=== PATIENT | male | born 1930 | race Caucasian/White ===

== ENCOUNTER 2017-11-07 09:01 | Emergency (ER) | payer OTHER ==
[~2017-11-07] VITALS: Wt 77.1 kg
[~2017-11-07 09:01] MED LIST: BIMATOPROST2.5 ML OU; COUMADIN3 MG PO; DEMEROL; FLOMAX0.4 MG PO; HCTZ PO; HUMALOG100 U/ML SC; INSULIN-HUMA100 U/ML; INSULIN-HUMA100 U/ML SC; LANTUS100 U/ML SC; LUMIGAN 2.5 ML2.5 ML OPH; METFORMIN500 MG PO; NEURONTIN300 MG PO; PRAVASTATIN SOD40 MG PO; PRESERVISION A1 EACH PO; PRILOSEC20 M1 PO; PRINIVIL5 M1 PO; ULTRAM50 MG PO; XARELTO20 M1 PO
[2017-11-07 11:54] LABS: BASO % 0.4 % (0.0-1.0); EOS # 0.3 10*3/uL (0.0-0.4); EOS % 3.6 % (1.0-4.0); LYMPH # 1.8 10*3/uL (1.3-4.4); LYMPH % 24.4 % (27.0-41.0); MEAN CELL VOLUME 90.9 fl (80.0-94.0); MEAN CORPUSCULAR HGB CONC 34.1 g/dl (33.0-37.0); MEAN PLATELET VOLUME 9.8 fl (9.6-12.3); MONO # 0.9 10*3/uL (0.1-1.0); MONO % 12.6 % (3.0-9.0); NEUT # 4.2 10*3/uL (2.3-7.9); NEUT % 58.3 % (47.0-73.0); PLATELET COUNT AUTOMATED 184 10*3/uL (130-400); RED BLOOD COUNT 4.51 10*6/uL (4.50-5.90); RED CELL DISTRI WIDTH 13.3 % (0-14.5); WHITE BLOOD COUNT 7.2 10*3/uL (4.8-10.8)
[2017-11-07 12:03] LABS: ACT PARTIAL THROMBO TIME 27.4 SECONDS (20.8-31.5); INTERNATIONAL NORM RATIO 1.1 (2.0-3.5)
[2017-11-07 12:07] LABS: CREATININE 1.49 mg/dL (0.70-1.30); POTASSIUM 4.6 mmol/L (3.5-5.1)
== END 2017-11-07 12:43 | disposition home or self-care (01) ==
LOC: ED 09:01
PROVIDERS: Emergency Medicine
DX: S72.091A Other fracture of head and neck of right femur, initial encounter for closed fracture (principal); S79.911A Unspecified injury of right hip, initial encounter; I10 Essential (primary) hypertension; Z88.8 Allergy status to other drugs, medicaments and biological substances; Z79.4 Long term (current) use of insulin; Z79.84 Long term (current) use of oral hypoglycemic drugs; Z79.899 Other long term (current) drug therapy; E11.40 Type 2 diabetes mellitus with diabetic neuropathy, unspecified; Z86.718 Personal history of other venous thrombosis and embolism; Z85.46 Personal history of malignant neoplasm of prostate; Z90.49 Acquired absence of other specified parts of digestive tract; W18.39XA Other fall on same level, initial encounter; Y93.89 Activity, other specified; Y92.090 Kitchen in other non-institutional residence as the place of occurrence of the external cause; Y99.8 Other external cause status

== ENCOUNTER 2018-12-17 14:37 | Inpatient (IN) | payer OTHER ==
[~2018-12-17] VITALS: Ht 177.8 cm; Wt 75.8 kg
--- NOTE | ~2018-12-17 | EKG ---
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
[2018-12-17 14:37] VITALS: BP 100/60
[~2018-12-17 14:37] MED LIST changes: +LANTUS SOL100 UNIT/1 SQ; -LANTUS100 U/ML SC; +METFORMIN XR500 MG PO
[2018-12-17 15:18] LABS: BASO % 0.3 % (0.0-1.0); EOS # 0.2 10*3/uL (0.0-0.4); EOS % 2.4 % (1.0-4.0); HEMATOCRIT 44.9 % (42.0-52.0); HEMOGLOBIN 15.2 g/dl (14.0-18.0); LYMPH # 1.7 10*3/uL (1.3-4.4); LYMPH % 26.9 % (27.0-41.0); MEAN CELL VOLUME 91.8 fl (80.0-94.0); MEAN CORPUSCULAR HGB 31.1 pg (27.0-31.0); MEAN CORPUSCULAR HGB CONC 33.9 g/dl (33.0-37.0); MEAN PLATELET VOLUME 9.3 fl (9.6-12.3); MONO # 0.6 10*3/uL (0.1-1.0); MONO % 10.4 % (3.0-9.0); NEUT # 3.7 10*3/uL (2.3-7.9); NEUT % 59.4 % (47.0-73.0); PLATELET COUNT AUTOMATED 194 10*3/uL (130-400); RED BLOOD COUNT 4.89 10*6/uL (4.50-5.90); RED CELL DISTRI WIDTH 13.2 % (0-14.5); WHITE BLOOD COUNT 6.2 10*3/uL (4.8-10.8)
[2018-12-17 15:30] VITALS: BP 106/70
[2018-12-17 15:35] LABS: ACT PARTIAL THROMBO TIME 28.3 SECONDS (20.8-31.5); INTERNATIONAL NORM RATIO 1.1 (2.0-3.5)
[2018-12-17 15:37] LABS: ALBUMIN 3.3 gm/dl (3.1-4.5); ALKALINE PHOSPHATASE 56 U/L (45-117); BUN 20 mg/dl (7-24); CHLORIDE 108 mmol/L (98-107); LIPASE 243 U/L (73-393); SGOT/AST 13 IU/L (3-35); SGPT/ALT 18 U/L (12-78); SODIUM 141 mmol/L (136-145); TOTAL PROTEIN 7.5 gm/dL (6.4-8.2); TROPONIN I < 0.015 ng/ml (<0.045)
[2018-12-17 17:12] VITALS: BP 104/72
--- NOTE | 2018-12-17 17:45 | NUR ---
A 88, admitted to , under the services of IVETH Castro DO with a diagnosis of HYPOTENSION, DIZZINESS. Chief complaint is DIZZINESS. Patient arrived via ambulatory from ER. Monitor applied. Initial assessment completed. Vital signs taken and recorded. IVETH CASTRO DO notified of admission to the unit. Orders received. See assessment for past medical history, medications and allergies. Patient and/or family oriented to unit. [facility] visitation policy reviewed. Clothing/patient valuable form completed. BRENDA VERDUZCO
[2018-12-17] MEDS ORDERED: ALLERGY10 M1 PO (18:28)
[2018-12-17] MEDS ORDERED: ASCORBIC ACID500 M2 PO (18:28)
--- NOTE | 2018-12-17 18:31 | NUR ---
DR DELA CRUZ MADE AWARE THAT MED REC HAD BEEN CHANGED DUE TO VERIFYING WITH PT. ALSO PT WISHES TO BE DNR-CC, IS CURRENTLY ON MONITOR AND ORDERED FULL CODE, AND NOTIFIED OF ORTHO BP RESULTS.
[2018-12-17 20:00] VITALS: BP 103/55
--- NOTE | 2018-12-17 21:37 | NUR ---
PT REFUSES HUMALOG COVERAGE AT THIS TIME. BLOOD SUGAR 165. PT STATES THAT HE WOULD NOT COVER WITH INSULIN AT HOME WITH BLOOD SUGAR OF 165, LANTUS GIVEN PER ORDER. WILL CONTINUE TO MONITOR. CALL LIGHT IN REACH.
[2018-12-18] VITALS: BP 120/47
[2018-12-18 06:24] LABS: BASO % 0.5 % (0.0-1.0); EOS # 0.2 10*3/uL (0.0-0.4); EOS % 2.8 % (1.0-4.0); HEMOGLOBIN 14.5 g/dl (14.0-18.0); LYMPH # 2.2 10*3/uL (1.3-4.4); LYMPH % 34.1 % (27.0-41.0); MEAN CELL VOLUME 91.9 fl (80.0-94.0); MEAN CORPUSCULAR HGB 31.7 pg (27.0-31.0); MEAN CORPUSCULAR HGB CONC 34.5 g/dl (33.0-37.0); MEAN PLATELET VOLUME 9.9 fl (9.6-12.3); MONO # 0.7 10*3/uL (0.1-1.0); MONO % 10.7 % (3.0-9.0); NEUT # 3.4 10*3/uL (2.3-7.9); NEUT % 51.4 % (47.0-73.0); PLATELET COUNT AUTOMATED 185 10*3/uL (130-400); RED BLOOD COUNT 4.57 10*6/uL (4.50-5.90); RED CELL DISTRI WIDTH 13.2 % (0-14.5); WHITE BLOOD COUNT 6.5 10*3/uL (4.8-10.8)
[2018-12-18 06:36] LABS: BUN 17 mg/dl (7-24); CHLORIDE 111 mmol/L (98-107); CHOLESTEROL 119 mg/dL (<200); CREATININE 1.21 mg/dL (0.70-1.30); PHOSPHOROUS 3.3 mg/dL (2.5-4.9); POTASSIUM 4.1 mmol/L (3.5-5.1); SODIUM 144 mmol/L (136-145); TRIGLYCERIDES 55 mg/dl (<150); VLDL CHOLESTEROL 11 mg/dL (6-40)
[2018-12-18 06:47] LABS: FREE T4 1.01 ng/dl (0.76-1.46); HDL CHOLESTEROL 51 mg/dl (40-60); LDL CHOLESTEROL 57 mg/dL (9-159)
--- NOTE | 2018-12-18 07:00 | NUR ---
PT AWAKE. BEDSIDE REPORT RECEIVED FROM ANTONETTE PEDRO. NO PT QUESTIONS CONCERNS AT THIS TIME. CALL MA IN REACH
[2018-12-18 07:09] LABS: ACT PARTIAL THROMBO TIME 24.7 SECONDS (20.8-31.5)
[2018-12-18 07:56] LABS: VITAMIN D, 25-HYDROXY 43.9 ng/mL (30-100)
[2018-12-18 08:00] VITALS: BP 140/60
[2018-12-18 12:00] VITALS: BP 168/88
[2018-12-18 16:00] VITALS: BP 153/73
[2018-12-18 20:00] VITALS: BP 131/71
[2018-12-19] VITALS: BP 147/76
--- NOTE | 2018-12-19 05:48 | NUR ---
PT UP TO BATHROOM, GAIT STEADY. IV FLUIDS INFUSING. NO S/S OF DISTRESS. RESPIRATIONS EASY ON ROOM AIR. AM MEDS GIVEN WITH EASE. CALL LIGHT IN REACH.
[2018-12-19 06:20] LABS: BASO % 0.2 % (0.0-1.0); EOS # 0.2 10*3/uL (0.0-0.4); EOS % 3.4 % (1.0-4.0); HEMATOCRIT 38.7 % (42.0-52.0); HEMOGLOBIN 13.1 g/dl (14.0-18.0); LYMPH # 1.8 10*3/uL (1.3-4.4); LYMPH % 35.1 % (27.0-41.0); MEAN CELL VOLUME 93.5 fl (80.0-94.0); MEAN CORPUSCULAR HGB 31.6 pg (27.0-31.0); MEAN CORPUSCULAR HGB CONC 33.9 g/dl (33.0-37.0); MEAN PLATELET VOLUME 9.7 fl (9.6-12.3); MONO # 0.7 10*3/uL (0.1-1.0); MONO % 14.1 % (3.0-9.0); NEUT # 2.3 10*3/uL (2.3-7.9); NEUT % 46.4 % (47.0-73.0); PLATELET COUNT AUTOMATED 158 10*3/uL (130-400); RED BLOOD COUNT 4.14 10*6/uL (4.50-5.90); RED CELL DISTRI WIDTH 13.2 % (0-14.5)
[2018-12-19 06:46] LABS: ALBUMIN 2.5 gm/dl (3.1-4.5); ALKALINE PHOSPHATASE 44 U/L (45-117); BUN 17 mg/dl (7-24); CHLORIDE 111 mmol/L (98-107); CREATININE 1.07 mg/dL (0.70-1.30); PHOSPHOROUS 3.1 mg/dL (2.5-4.9); POTASSIUM 4.6 mmol/L (3.5-5.1); SGOT/AST 12 IU/L (3-35); SGPT/ALT 16 U/L (12-78); SODIUM 145 mmol/L (136-145)
[2018-12-19 08:00] VITALS: BP 165/79
--- NOTE | 2018-12-19 09:28 | NUR ---
ORTHOS COMPLETE. PT DENIES DIZZINESS DURING. CALL LIGHT IN REACH. WILL MONITOR
[2018-12-19 12:00] VITALS: BP 154/83
--- NOTE | 2018-12-19 14:00 | NUR ---
PHYSICAL THERAPY PT EVAL COMPLETED TODAY ON LEVEL 4: FULL EVALUATION TO FOLLOW. RECOMMEND PT WHILE HERE TO ADDRESS DECREASED STRENGTH AND FUNCTIONAL MOBILITY. PT EVAL IS MODERATE COMPLEXITY BASED ON CHART REVIEW, TEST RESULTS AND EVALUATION: 40393 D.C RECOMMENDATIONS ARE FOR HOME PT HOWEVER DURING EVALUATION PATIENT STATES HE DOES NOT FEEL HE WILL NEED THIS. THANK YOU FOR REFERRAL RICARDA MORALES PT
[2018-12-19 16:00] VITALS: BP 144/75
--- NOTE | 2018-12-19 16:00 | NUR ---
Patient resting quietly with no c/o discomfort. Respirations easy and regular. Vital signs stable. No overt distress. BRENDA GAN R
[2018-12-19 20:00] VITALS: BP 133/67
[2018-12-20] VITALS: BP 140/58
[2018-12-20 06:37] LABS: BUN 16 mg/dl (7-24); CHLORIDE 112 mmol/L (98-107); CREATININE 1.25 mg/dL (0.70-1.30); POTASSIUM 4.4 mmol/L (3.5-5.1); SODIUM 145 mmol/L (136-145)
[2018-12-20 06:40] LABS: BASO % 0.5 % (0.0-1.0); EOS # 0.2 10*3/uL (0.0-0.4); EOS % 2.9 % (1.0-4.0); HEMATOCRIT 38.9 % (42.0-52.0); HEMOGLOBIN 12.9 g/dl (14.0-18.0); LYMPH # 1.6 10*3/uL (1.3-4.4); LYMPH % 29.9 % (27.0-41.0); MEAN CELL VOLUME 92.8 fl (80.0-94.0); MEAN CORPUSCULAR HGB 30.8 pg (27.0-31.0); MEAN CORPUSCULAR HGB CONC 33.2 g/dl (33.0-37.0); MEAN PLATELET VOLUME 9.7 fl (9.6-12.3); MONO # 0.7 10*3/uL (0.1-1.0); MONO % 13.1 % (3.0-9.0); NEUT # 2.9 10*3/uL (2.3-7.9); NEUT % 53.1 % (47.0-73.0); PLATELET COUNT AUTOMATED 158 10*3/uL (130-400); RED BLOOD COUNT 4.19 10*6/uL (4.50-5.90); RED CELL DISTRI WIDTH 13.4 % (0-14.5); WHITE BLOOD COUNT 5.5 10*3/uL (4.8-10.8)
--- NOTE | 2018-12-20 07:30 | NUR ---
ASSESSMENT COMPLETED. PT DENIES DIZZINESS, SOB, CHEST PAIN AT THIS TIME. IS PLEASANT AND COOPERATIVE, WAITING FOR BREAKFAST TRAY TO ARRIVE. NO COMPLAINTS AT THIS TIME. ANTONETTE GRIFFIN
[2018-12-20 08:03] VITALS: BP 130/68
--- NOTE | 2018-12-20 09:00 | NUR ---
case management attempted to visit with patient, patient was with nursing staff at this time, will see at a later time today
--- NOTE | 2018-12-20 09:10 | NUR ---
Occupational Therapy referral received and screen completed. Patient admits to independence in mobility and self care. He will use a straight cane or in the am at home a quad cane and admits it is because he lacks sensation in BLEs d/t diabetic neuropathy. Patient reports mild edema right elb and OTR recommended elevation and pumping of UE above the heart. Patient expresses good understanding. OTR also recommends silver sneaks maintanence program at the [facility] upon d/c. Patient reports that his brother participates in this program and that he will consider it as well upon d/c. No further OT indicated at this time. D/C referral d/t patinets independence. Cindy Garcia OTR/L
--- NOTE | 2018-12-20 11:24 | NUR ---
Seed Trucker in to talk to patient. Patient states lives at home with alone. There are few steps in the home. Physician: nawaf ferris Pharmacy: [facility] services: none Patient's level of ADLs: INDEPENDENT Patient has working utilities: all working DME: cane Follow-up physician's appointment after d/c: will be made by hospitalist nurse director upon discharge Does patient want to access PORTAL?: no Discharge plan discussed with patient, patient lives at home alone, he states he is independent in adls and ambulation, drives, he uses a cane when he goes outside of his home. also stated that his daughter lives next door and would help him with anything he needed. patient states he hopes to be going home today. DENITA SANCHEZ
[2018-12-20 11:31] VITALS: BP 154/72
--- NOTE | 2018-12-20 11:37 | NUR ---
PT RESTING COMFORTABLY AT THIS TIME WAITING FOR LUNCH TRAY. NO COMPLAINTS OF SOB, DIZZINESS AT THIS TIME. REPORT GIVEN TO FILIBERTO PEDRO. ANTONETTE GRIFFIN
--- NOTE | 2018-12-20 13:31 | NUR ---
PHYSICAL THERAPY TIME OF TREATMENT: 8:48 AM Patient presented to therapy in supine with head elevated and report of not having any dizziness or other complaints. Patient agrees to therapy session. Patient was identified by name and . Patient transfers supine to sitting at EOB WITH SBA. Patient STS transfer with SBA. Patient ambulated with W/W and CLose Supervision for 416' x 1 and no LOB using the W/W. Patient then sat on EOB and performed bilateral LE ther ex 2 x 10 reps in all planes of movement for strengthening in order to improve patient's functional mobility. Patient transferred back to supine in bed with SBA. Patient was left in supine in bed with head of bed elevated, call light within reach, and bed alarm activated. Patient was 1:1 with this PUMPER HELPER for 23 minutes total. MIO BELTRAN PUMPER HELPER
[2018-12-20 16:00] VITALS: BP 148/81
--- NOTE | 2018-12-20 16:00 | NUR ---
PHYSICAL THERAPY Patient is to be discharged this afternoon. EAR TIFFANI BELTRAN PTA
--- NOTE | 2018-12-20 16:52 | NUR ---
Discharge instructions reviewed with patient/family. Patient receptive and verbalizes understanding. Follow-up care arranged. Written instructions given to patient/family. BRENDA GAN
--- NOTE | 2018-12-21 07:43 | NUR ---
PHYSICAL THERAPY CO-SIGN I approve of the Phyical Therapy notes written above. ASHWIN JAIN PT
== END 2018-12-20 16:52 | disposition home or self-care (01) | DRG 683 ==
LOC: ED 14:37 → EDHOLD 15:59 → 4E 15:59 → EDHOLD 16:32 → 4E 17:08
PROVIDERS: Internal Medicine; Nurse Practitioner Family; Student in an Organized Health Care Education/Training Program; ADMIT Emergency Medicine
DX: N17.0 Acute kidney failure with tubular necrosis (principal); E44.1 Mild protein-calorie malnutrition; D68.9 Coagulation defect, unspecified; E86.0 Dehydration; I95.1 Orthostatic hypotension; E11.42 Type 2 diabetes mellitus with diabetic polyneuropathy; E87.8 Other disorders of electrolyte and fluid balance, not elsewhere classified; E11.65 Type 2 diabetes mellitus with hyperglycemia; R35.0 Frequency of micturition; R29.6 Repeated falls; E11.39 Type 2 diabetes mellitus with other diabetic ophthalmic complication; H40.9 Unspecified glaucoma; N40.1 Benign prostatic hyperplasia with lower urinary tract symptoms; I67.9 Cerebrovascular disease, unspecified; I12.9 Hypertensive chronic kidney disease with stage 1 through stage 4 chronic kidney disease, or unspecified chronic kidney disease; E11.22 Type 2 diabetes mellitus with diabetic chronic kidney disease; N18.3 Chronic kidney disease, stage 3 (moderate); K21.9 Gastro-esophageal reflux disease without esophagitis; T45.515A Adverse effect of anticoagulants, initial encounter; Y92.89 Other specified places as the place of occurrence of the external cause; Z79.4 Long term (current) use of insulin; Z79.01 Long term (current) use of anticoagulants; Z86.718 Personal history of other venous thrombosis and embolism; Z88.8 Allergy status to other drugs, medicaments and biological substances; Z85.46 Personal history of malignant neoplasm of prostate; Z86.711 Personal history of pulmonary embolism; Z90.49 Acquired absence of other specified parts of digestive tract; Z98.42 Cataract extraction status, left eye; Z98.41 Cataract extraction status, right eye; Z87.891 Personal history of nicotine dependence; Z80.9 Family history of malignant neoplasm, unspecified; Z92.3 Personal history of irradiation; Z87.442 Personal history of urinary calculi; Z83.3 Family history of diabetes mellitus; Z83.79 Family history of other diseases of the digestive system; Z82.0 Family history of epilepsy and other diseases of the nervous system; Z79.899 Other long term (current) drug therapy; Z68.23 Body mass index [BMI] 23.0-23.9, adult

== ENCOUNTER 2019-06-11 19:33 | Inpatient (IN) | payer OTHER ==
[~2019-06-11] VITALS: Ht 179.1 cm; Wt 77.8 kg
[~2019-06-11 19:33] MED LIST changes: +ALLERGY10 M1 PO; +ASCORBIC ACID500 M2 PO
[2019-06-11 19:38] VITALS: BP 158/75
--- NOTE | 2019-06-11 20:07 | NUR ---
PATIENT REFUSES TYLENOL, STATING HE TOOK A TABLET OF TYLENOL ONE HOUR BEFORE ARRIVAL TO ED.
[2019-06-11 20:14] LABS: BASO % 0.1 % (0.0-1.0); EOS % 0.2 % (1.0-4.0); HEMATOCRIT 40.7 % (42.0-52.0); HEMOGLOBIN 13.4 g/dl (14.0-18.0); LYMPH # 1.4 10*3/uL (1.3-4.4); LYMPH % 17.1 % (27.0-41.0); MEAN CELL VOLUME 92.5 fl (80.0-94.0); MEAN CORPUSCULAR HGB 30.5 pg (27.0-31.0); MEAN CORPUSCULAR HGB CONC 32.9 g/dl (33.0-37.0); MEAN PLATELET VOLUME 10.2 fl (9.6-12.3); MONO # 1.1 10*3/uL (0.1-1.0); NEUT # 5.7 10*3/uL (2.3-7.9); NEUT % 69.1 % (47.0-73.0); PLATELET COUNT AUTOMATED 149 10*3/uL (130-400); WHITE BLOOD COUNT 8.2 10*3/uL (4.8-10.8)
[2019-06-11 20:32] LABS: ALBUMIN 2.9 gm/dl (3.1-4.5); CREATININE 1.42 mg/dL (0.70-1.30)
[2019-06-11 21:30] LABS: BILIRUBIN NEGATIVE (NEGATIVE); BLOOD 2+ (NEGATIVE); CLARITY SL CLOUDY (CLEAR); COLOR YELLOW (YELLOW); GLUCOSE 3+ (NEGATIVE); KETONE TRACE (NEGATIVE); LEUKO ESTERASE NEGATIVE (NEGATIVE); NITRITE NEGATIVE (NEGATIVE)
[2019-06-11 21:37] LABS: BACTERIA TRACE; EPITHELIAL CELLS 0-2; RBC 16-20 rbc/hpf (0-2); WBC 0-2 wbc/hpf (0-5)
[2019-06-11 23:24] VITALS: BP 146/72
[2019-06-12 02:30] VITALS: BP 178/78
--- NOTE | 2019-06-12 02:30 | NUR ---
A 88, admitted to , under the services of HARIS Ndiaye DO with a diagnosis of unable to ambulate, Fall. Chief complaint is C/O LOWER BACK PAIN WHICH RADIATED DOWN LEFT LEG. C/O FEELING WEAKER THAN USUAL AND C/O STRAINED MUSCLE FROM WEED WACKING ON THURSDAY. Patient arrived via stretcher from ER. Initial assessment completed. Vital signs taken and recorded. HARIS NDIAYE DO notified of admission to the unit. Orders received. See assessment for past medical history, medications and allergies. Patient and/or family oriented to unit. [facility] visitation policy reviewed. Clothing/patient valuable form completed. BERE LIANG
[2019-06-12 03:00] VITALS: BP 148/72
[2019-06-12] MEDS ORDERED: HUMALOG100 UNIT/2 SQ (03:00)
[2019-06-12] MEDS ORDERED: LISINOPRIL2.5 MG PO (03:03)
[2019-06-12] MEDS ORDERED: OMEPRAZOLE D/R20 MG PO (03:04)
[2019-06-12 06:38] LABS: BASO % 0.2 % (0.0-1.0); EOS % 0.2 % (1.0-4.0); HEMATOCRIT 44.2 % (42.0-52.0); HEMOGLOBIN 14.7 g/dl (14.0-18.0); LYMPH # 1.6 10*3/uL (1.3-4.4); LYMPH % 16.7 % (27.0-41.0); MEAN CELL VOLUME 92.7 fl (80.0-94.0); MEAN CORPUSCULAR HGB 30.8 pg (27.0-31.0); MEAN CORPUSCULAR HGB CONC 33.3 g/dl (33.0-37.0); MEAN PLATELET VOLUME 10.1 fl (9.6-12.3); MONO # 1.3 10*3/uL (0.1-1.0); MONO % 14.1 % (3.0-9.0); NEUT # 6.4 10*3/uL (2.3-7.9); NEUT % 68.2 % (47.0-73.0); PLATELET COUNT AUTOMATED 173 10*3/uL (130-400); RED BLOOD COUNT 4.77 10*6/uL (4.50-5.90); RED CELL DISTRI WIDTH 12.8 % (0-14.5); WHITE BLOOD COUNT 9.3 10*3/uL (4.8-10.8)
[2019-06-12 06:59] LABS: ALBUMIN 3.1 gm/dl (3.1-4.5); BUN 17 mg/dl (7-24); CHLORIDE 106 mmol/L (98-107); POTASSIUM 3.8 mmol/L (3.5-5.1); SODIUM 140 mmol/L (136-145)
[2019-06-12 07:02] LABS: ALKALINE PHOSPHATASE 55 U/L (45-117); CREATININE 1.27 mg/dL (0.70-1.30); PHOSPHOROUS 2.7 mg/dL (2.5-4.9); SGOT/AST 14 IU/L (3-35); SGPT/ALT 15 U/L (12-78); TOTAL PROTEIN 7.4 gm/dL (6.4-8.2)
[2019-06-12 08:00] VITALS: BP 148/81
--- NOTE | 2019-06-12 08:00 | NUR ---
IN TO ROOM, PATIENT AWAKE, ALERT AND ORIENTED. PLEASANT AND COOPERATIVE WITH CARE. DENIES PAIN AT REST BUT STATES THAT WITH MOVEMENT THAT SOMETIMES THERE IS A SHOOTING PAIN. NO SPECIFIC MOVEMENT CAUSES PAIN. NO SOB NOTED AND NO S/S OF DISTRESS. BED IN LOWEST LOCKED POSITION AND CALL LIGHT WITHIN REACH. WILL CONTINUE TO MONITOR.
--- NOTE | 2019-06-12 11:39 | NUR ---
IN TO ROOM. NO STATED COMPLAINTS. DENIES PAIN AT THIS TIME. RESPIRATIONS ARE EASY AND REGULAR. BED IN LOWEST LOCKED POSITION AND CALL LIGHT WITHIN REACH AND ENCOURAGED. WILL CONTINUE TO MONITOR.
[2019-06-12 12:00] VITALS: BP 116/66
[2019-06-12 16:00] VITALS: BP 114/49
--- NOTE | 2019-06-12 19:49 | NUR ---
PATIENT PLACED ON K-PAD.
[2019-06-12 20:00] VITALS: BP 131/58
--- NOTE | 2019-06-12 21:00 | NUR ---
PATIENT HAVING BACK PAIN, RATES 8/10. PATIENT STATED HE WAS HAVING BACK SPASMS LAST NIGHT AND UNABLE TO SLEEP. NORCO GIVEN. WILL MONITOR AND REASSESS.
--- NOTE | 2019-06-12 21:18 | NUR ---
24 HR chart check completed.
--- NOTE | 2019-06-12 22:10 | NUR ---
PATIENT RESTING, NO SIGNS OF DISTRESS. NORCO EFFECTIVE.
--- NOTE | 2019-06-12 22:24 | NUR ---
24 HR chart check completed.
[2019-06-13] VITALS: BP 118/73
--- NOTE | 2019-06-13 04:44 | NUR ---
PATIENT SLEEPING, BREATHING IS EASY AND REGULAR. NO SIGNS OR SYMPTOMS OF DISTRESS. CALL LIGHT WITHIN REACH, WILL MONITOR
[2019-06-13 06:27] LABS: BASO % 0.3 % (0.0-1.0); CREATININE 1.42 mg/dL (0.70-1.30); EOS # 0.1 10*3/uL (0.0-0.4); EOS % 0.9 % (1.0-4.0); HEMATOCRIT 39.2 % (42.0-52.0); LYMPH # 2.1 10*3/uL (1.3-4.4); LYMPH % 27.5 % (27.0-41.0); MEAN CELL VOLUME 93.1 fl (80.0-94.0); MEAN CORPUSCULAR HGB 30.9 pg (27.0-31.0); MEAN CORPUSCULAR HGB CONC 33.2 g/dl (33.0-37.0); MEAN PLATELET VOLUME 10.4 fl (9.6-12.3); NEUT # 4.4 10*3/uL (2.3-7.9); NEUT % 57.6 % (47.0-73.0); PLATELET COUNT AUTOMATED 162 10*3/uL (130-400); POTASSIUM 3.7 mmol/L (3.5-5.1); RED BLOOD COUNT 4.21 10*6/uL (4.50-5.90); RED CELL DISTRI WIDTH 12.9 % (0-14.5); WHITE BLOOD COUNT 7.6 10*3/uL (4.8-10.8)
[2019-06-13 08:00] VITALS: BP 122/65
--- NOTE | 2019-06-13 09:43 | NUR ---
Occupational THerapy evaluation completed on 4 with full eval to follow. Precautions include left hip and LE pain, back pain,h/o frequent falls,fall risk, using a quad cane in hospital and a cane at home,moderate complexity level 91180 via chart review, testing and evaluation. Recommend OT per POC and return home alone with no further OTindicated at this time. Thank you. Cindy Garcia OTR/l
[2019-06-13 12:00] VITALS: BP 128/60
--- NOTE | 2019-06-13 12:08 | NUR ---
PHYSICAL THERAPY Physical therapy evaluation complete, 4E. Full evaluation/details to follow. Moderate complexity evaluation per chart review and evaluation, 548[address]. Patient presents with LBP and left radicular symptoms, new onset. Recommend Outpatient PT services at discharge. Thank you. Lucía Simon, PT,DPT.
--- NOTE | 2019-06-13 12:36 | NUR ---
Italian Lecturer in to talk to patient. Patient states lives at HOME with ALONE. There are FEW steps in the home. Physician: SELINA Pharmacy: [facility] Home health services: NONE Patient's level of ADLs: INDEPENDENT Patient has working utilities: YES DME: REYMUNDO Follow-up physician's appointment after d/c: WILL BE MADE BY HOSPITALIST NURSE DIRECTOR ON DISCHARGE Does patient want to access PORTAL?: NO Discharge plan PT LIVES AT HOME ALONE WITH HIS DAUGHTER LIVING NEXT DOOR TO HIM. STATES HE IS INDEPENDENT IN HIS CARE AND HIS DAUGHTER LIVES NEXT DOOR TO HIM. DENIES ANY NEEDS ON DISCHARGE AND STATES HE WILL RETURN HOME. WILL CONTINUE TO FOLLOW. STATES HE WILL HAVE A RIDE HOME.. YELENA LYONS
[2019-06-13 16:00] VITALS: BP 121/55
--- NOTE | 2019-06-13 19:37 | NUR ---
PATIENT MEDICATED WITH NORCO FOR L HIP/LEG PAIN 08/25. WILL MONITOR
[2019-06-13 20:00] VITALS: BP 109/56
--- NOTE | 2019-06-13 20:37 | NUR ---
NORCO EFFECTIVE FOR L HIP/LEG PAIN.
[2019-06-14] VITALS: BP 101/46
[2019-06-14 06:13] LABS: BASO % 0.6 % (0.0-1.0); EOS # 0.1 10*3/uL (0.0-0.4); EOS % 2.2 % (1.0-4.0); HEMATOCRIT 39.2 % (42.0-52.0); LYMPH % 31.6 % (27.0-41.0); MEAN CELL VOLUME 93.6 fl (80.0-94.0); MEAN CORPUSCULAR HGB CONC 33.2 g/dl (33.0-37.0); MEAN PLATELET VOLUME 10.3 fl (9.6-12.3); MONO # 0.9 10*3/uL (0.1-1.0); MONO % 13.2 % (3.0-9.0); NEUT # 3.3 10*3/uL (2.3-7.9); NEUT % 51.6 % (47.0-73.0); PLATELET COUNT AUTOMATED 180 10*3/uL (130-400); RED BLOOD COUNT 4.19 10*6/uL (4.50-5.90); RED CELL DISTRI WIDTH 12.9 % (0-14.5); WHITE BLOOD COUNT 6.5 10*3/uL (4.8-10.8)
[2019-06-14 06:36] LABS: BUN 23 mg/dl (7-24); CHLORIDE 107 mmol/L (98-107); CREATININE 1.33 mg/dL (0.70-1.30); POTASSIUM 3.9 mmol/L (3.5-5.1); SODIUM 140 mmol/L (136-145)
[2019-06-14 09:00] VITALS: BP 118/66
--- NOTE | 2019-06-14 11:11 | NUR ---
PHYSICAL THERAPY Patient gives informed consent for treatment. Patient had report of pain in L hip and down L LE. Patient was identified by name and . Patient performed supine to sitting at EOB transfer with SBA. Patient sit to stand from EOB with SBA. Patient ambulated with Quad cane and CGA X 1 for 150' x 1 and then again, for 200' x 1 , with no LOB, SOB, or other difficulty. Patient is not on spO2. Patient tolerated gait x 2 with Quad cane with no difficulty and no increased radiculopathy down L LE. Patient was left sitting on EOB with visitor, Mr Forman present. Patient was 1:1 with this SUPERVISOR FISHING for 20 minutes total. MIO BELTRAN SUPERVISOR FISHING
--- NOTE | 2019-06-14 11:30 | NUR ---
FAXED OP THERAPY SCRIP TO THERAPY [facility]ENTER AT [facility]. WHEN I TOOK SCRIP TO PT ROOM TO GIVE HIM ALONG WITH THE TELEPHONE NUMBER TO SET UP THERAPY, PT STATES THEY TOLD ME I NEEDED TO GET THERAPY AT HOME. PT IS NOW REQUESTING HOME HEALTH WITH HOME PHYSICAL THERAPY. CHOSE [facility] WHEN PROVIDED WITH LIST. HOSPITALIST NURSE DIRECTOR NOTIFIED ORDER NEEDED FOR HOME HEALTH AND PT.
[2019-06-14 12:00] VITALS: BP 120/59
[2019-06-14] MEDS ORDERED: HYDROCODONE-AC1 EAC1 PO (13:37)
[2019-06-14] MEDS ORDERED: CYCLOBENZAPRINE10 MG PO (13:37)
--- NOTE | 2019-06-14 14:02 | NUR ---
Pt was treated x 23 minutes in OT beginning with supine to sit without difficulty. Sit to stand from bed with SBA. Performed fxl mobility throughout bedroom and out in hallway with SBA. RN arrived with discharge papers this afternoon. Continue with POC. Call light within reach. Marlin BUTCHER
--- NOTE | 2019-06-14 15:05 | NUR ---
[facility] Discharge instructions reviewed with patient/family. Patient receptive and verbalizes understanding. Follow-up care arranged. Written instructions given to patient/family. CÉSAR ROMERO
--- NOTE | 2019-06-14 15:43 | NUR ---
PHYSICAL THERAPY CO-SIGN I approve of the Physical Therapy notes written above. USLY CHAVEZ PT,DPT
--- NOTE | 2019-06-15 13:29 | NUR ---
OCCUPATIONAL THERAPY CO-SIGN I approve of the Occupational Therapy notes written above. KATHERINE ALLEN OTR/Brandyn
--- NOTE | 2019-06-15 14:13 | NUR ---
RECIEVED ORDER FOR HOME HEALTH AND FAXED IT TO [facility]. DAUGHTER INFORMED THAT [facility] WILL BE CONTACTING THEM
--- NOTE | 2019-06-16 10:55 | NUR ---
FACE TO FACE SHEET FAXED TO [facility].
== END 2019-06-14 15:05 | disposition home health service (06) | DRG 551 ==
LOC: ED 19:33 → 4E 06-12 02:03 → EDHOLD 06-12 02:03 → 4E 06-12 02:15
PROVIDERS: Internal Medicine; Nurse Practitioner Family; Student in an Organized Health Care Education/Training Program; ADMIT Internal Medicine
DX: M54.32 Sciatica, left side (principal); N17.0 Acute kidney failure with tubular necrosis; M48.56XA Collapsed vertebra, not elsewhere classified, lumbar region, initial encounter for fracture; E44.0 Moderate protein-calorie malnutrition; E87.1 Hypo-osmolality and hyponatremia; I10 Essential (primary) hypertension; M47.896 Other spondylosis, lumbar region; H40.9 Unspecified glaucoma; R54 Age-related physical debility; E11.65 Type 2 diabetes mellitus with hyperglycemia; E11.42 Type 2 diabetes mellitus with diabetic polyneuropathy; N40.0 Benign prostatic hyperplasia without lower urinary tract symptoms; R31.9 Hematuria, unspecified; D72.810 Lymphocytopenia; Z66 Do not resuscitate; Z51.5 Encounter for palliative care; D64.9 Anemia, unspecified; R29.6 Repeated falls; Z79.4 Long term (current) use of insulin; Z86.718 Personal history of other venous thrombosis and embolism; Z86.711 Personal history of pulmonary embolism; Z87.442 Personal history of urinary calculi; Z85.46 Personal history of malignant neoplasm of prostate; Z90.49 Acquired absence of other specified parts of digestive tract; Z98.42 Cataract extraction status, left eye; Z98.41 Cataract extraction status, right eye; Z87.891 Personal history of nicotine dependence; Z80.8 Family history of malignant neoplasm of other organs or systems; Z83.3 Family history of diabetes mellitus; Z82.0 Family history of epilepsy and other diseases of the nervous system; Z83.79 Family history of other diseases of the digestive system; Z88.8 Allergy status to other drugs, medicaments and biological substances; Z79.899 Other long term (current) drug therapy; Z79.01 Long term (current) use of anticoagulants; Z68.24 Body mass index [BMI] 24.0-24.9, adult

== ENCOUNTER 2020-01-24 10:47 | Emergency (ER) | payer OTHER ==
[~2020-01-24 10:47] MED LIST changes: +CYCLOBENZAPRINE10 MG PO; +HUMALOG100 UNIT/2 SQ; +HYDROCODONE-AC1 EAC1 PO; +LISINOPRIL2.5 MG PO; +OMEPRAZOLE D/R20 MG PO
[2020-01-24 11:42] LABS: BASO % 0.3 % (0.0-1.0); EOS # 0.1 10*3/uL (0.0-0.4); EOS % 1.3 % (1.0-4.0); HEMATOCRIT 41.9 % (42.0-52.0); HEMOGLOBIN 13.7 g/dl (14.0-18.0); LYMPH # 1.6 10*3/uL (1.3-4.4); LYMPH % 25.4 % (27.0-41.0); MEAN CELL VOLUME 93.9 fl (80.0-94.0); MEAN CORPUSCULAR HGB 30.7 pg (27.0-31.0); MEAN CORPUSCULAR HGB CONC 32.7 g/dl (33.0-37.0); MEAN PLATELET VOLUME 10.1 fl (9.6-12.3); MONO # 0.7 10*3/uL (0.1-1.0); MONO % 11.3 % (3.0-9.0); NEUT # 3.8 10*3/uL (2.3-7.9); NEUT % 61.4 % (47.0-73.0); PLATELET COUNT AUTOMATED 153 10*3/uL (130-400); RED BLOOD COUNT 4.46 10*6/uL (4.50-5.90); WHITE BLOOD COUNT 6.2 10*3/uL (4.8-10.8)
[2020-01-24 12:03] LABS: ALBUMIN 2.9 gm/dl (3.1-4.5); CREATININE 1.5 mg/dL (0.70-1.30); POTASSIUM 3.8 mmol/L (3.5-5.1); TOTAL PROTEIN 6.9 gm/dL (6.4-8.2)
[2020-01-24] MEDS ORDERED: FLONASE ALLERG9.9 ML NAS (12:12)
[2020-01-24] MEDS ORDERED: TESSALON PERLE100 MG PO (12:12)
[2020-01-24] MEDS ORDERED: DOXYCYCLINE100 M3 PO (12:12)
== END 2020-01-24 12:17 | disposition home or self-care (01) ==
LOC: ED 10:47
PROVIDERS: Nurse Practitioner Family
DX: J01.90 Acute sinusitis, unspecified (principal); E86.0 Dehydration; H92.03 Otalgia, bilateral; I10 Essential (primary) hypertension; E11.9 Type 2 diabetes mellitus without complications; Z79.899 Other long term (current) drug therapy; Z79.4 Long term (current) use of insulin; Z90.49 Acquired absence of other specified parts of digestive tract; Z79.2 Long term (current) use of antibiotics; Z86.718 Personal history of other venous thrombosis and embolism

== ENCOUNTER 2020-07-28 19:53 | Inpatient (IN) | payer OTHER ==
[~2020-07-28] VITALS: Ht 177.8 cm; Wt 83.6 kg
[~2020-07-28 19:53] MED LIST changes: +DOXYCYCLINE100 M3 PO; +FLONASE ALLERG9.9 ML NAS; +TESSALON PERLE100 MG PO
[2020-07-28 20:00] VITALS: BP 130/73
--- NOTE | 2020-07-28 20:19 | NUR ---
PT HAS LACERATION TO RIGHT FOREHEAD.MULTIPLE ABRASIONS TO RIGHT HAND.ABRASION TO RIGHT ELBOW.LARGE ABRASION/SKIN TEAR TO RT UPPER SHOULDER.ABRASION TO LEFT HAND AND ELBOW.HEMATOMA TO INNER ASPECT OF LOWER LEFT LEG.SMALL ABRASION TO OUTER ASPECT OF RIGHT KNEE.
[2020-07-28 20:29] LABS: BASO % 0.5 % (0.0-1.0); EOS # 0.1 10*3/uL (0.0-0.4); EOS % 1.9 % (1.0-4.0); HEMATOCRIT 43.3 % (42.0-52.0); LYMPH # 1.6 10*3/uL (1.3-4.4); LYMPH % 24.8 % (27.0-41.0); MEAN CELL VOLUME 90.4 fl (80.0-94.0); MEAN CORPUSCULAR HGB 29.9 pg (27.0-31.0); MEAN PLATELET VOLUME 9.6 fl (9.6-12.3); MONO # 0.7 10*3/uL (0.1-1.0); MONO % 10.9 % (3.0-9.0); NEUT # 3.9 10*3/uL (2.3-7.9); NEUT % 61.3 % (47.0-73.0); PLATELET COUNT AUTOMATED 183 10*3/uL (130-400); RED BLOOD COUNT 4.79 10*6/uL (4.50-5.90); RED CELL DISTRI WIDTH 12.6 % (0-14.5); WHITE BLOOD COUNT 6.4 10*3/uL (4.8-10.8)
[2020-07-28 20:38] LABS: INTERNATIONAL NORM RATIO 1.2 (2.0-3.5)
[2020-07-28 20:43] LABS: ALBUMIN 3.2 gm/dl (3.1-4.5); CREATININE 1.59 mg/dL (0.70-1.30); POTASSIUM 4.4 mmol/L (3.5-5.1); TOTAL PROTEIN 7.4 gm/dL (6.4-8.2)
--- NOTE | 2020-07-28 20:52 | NUR ---
PT REMAINS OFF UNIT AT CT AT THIS TIME.
--- NOTE | 2020-07-28 20:54 | NUR ---
PT RETURNED TO ROOM VIA W/C FROM CT.
--- NOTE | 2020-07-28 21:24 | NUR ---
RESIDENT AT BEDSIDE FOR SUTURE REPAIR OF FOREHEAD LACERATION.
--- NOTE | 2020-07-28 21:39 | NUR ---
THIS RN SPOKE WITH PT DAUGHTER, KIRSTEN LAGUERRE, SHE ADVISES SHE CAN PICK PT UP UPON DISCHARGE BUT IS UNABLE TO STAY WITH HIM OVERNIGHT DUE TO HER JOB.CONTACT#[phone].REQUEST CONTACT WITH UPDATE ON PT PLAN OF CARE.AUBREY NOGUERA NOTIFIED.
--- NOTE | 2020-07-28 22:48 | NUR ---
THIS RN SPOKE WITH PT DAUGHTER KIRSTEN LAGUERRE AND UPDATED HER ON PT PLAN OF ADMISSION.SHE ADVISES SHE WILL BE ABLE TO PROVIDE TRANSPORT HOME FOR PT UPON HIS DISCHARGE TOMORROW.DAUGHTER ALSO STATES SHE WILL NOTIFY HER SISTER SANDY AND PROVIDE HER WITH UPDATE ON PT.
--- NOTE | 2020-07-28 22:49 | NUR ---
PT AWARE OF PENDING ADMISSION.
[2020-07-29] VITALS (7 sets, daily range): BP systolic 111–176; BP diastolic 52–97
--- NOTE | 2020-07-29 00:28 | NUR ---
PT HAS AREA OF DRY SKIN TO LOWER RIGHT LEG.
--- NOTE | 2020-07-29 01:24 | NUR ---
Time: 123 A 89 year old MALE admitted to 4E under services of RICK ROYAL DO. Pt. arrived via stretcher from ER. Chief complaint: SORE FROM FALL AND MULTIPLE WOUNDS. VERO GARCIA
--- NOTE | 2020-07-29 01:41 | NUR ---
PT TAKEN TO FLOOR BY STRATEGIC INTELLIGENCE OFFICER.THIS RN CALLED TO PROVIDE NURSE TO NURSE REPORT.RN TO RETURN CALL.
[2020-07-29] MEDS ORDERED: ALOGLIPTIN12.5 MG PO (02:10)
[2020-07-29] MEDS ORDERED: PROZAC20 MG PO (02:11)
[2020-07-29] MEDS ORDERED: XARE15TA PO (02:13)
[2020-07-29] MEDS ORDERED: LATANOPROST2.5 ML OP (02:14)
--- NOTE | 2020-07-29 02:15 | NUR ---
NURSE TO NURSE REPORT GIVEN TO WILLIS BLACKBURN.
[2020-07-29] MEDS ORDERED: PRAVASTATIN SOD40 MG PO (02:16)
--- NOTE | 2020-07-29 02:18 | NUR ---
MED REC COMPLETED WITH LIST FROM HOME. COPY PLACED ON CHART.
--- NOTE | 2020-07-29 03:45 | NUR ---
CALLED DR. LEUNG AND NOTIFIED HER OF HOME MEDICATIONS RECONCILLED AND FOR WOUND CARE ORDERS.
[2020-07-29 06:01] LABS: BUN 19 mg/dl (7-24); CHLORIDE 108 mmol/L (98-107); CREATININE 1.26 mg/dL (0.70-1.30); POTASSIUM 4.2 mmol/L (3.5-5.1); SODIUM 140 mmol/L (136-145)
[2020-07-29 06:02] LABS: BASO % 0.2 % (0.0-1.0); EOS # 0.1 10*3/uL (0.0-0.4); EOS % 1.1 % (1.0-4.0); HEMATOCRIT 42.2 % (42.0-52.0); LYMPH # 1.2 10*3/uL (1.3-4.4); LYMPH % 13.8 % (27.0-41.0); MEAN CELL VOLUME 90.6 fl (80.0-94.0); MEAN CORPUSCULAR HGB 29.8 pg (27.0-31.0); MEAN CORPUSCULAR HGB CONC 32.9 g/dl (33.0-37.0); MEAN PLATELET VOLUME 9.8 fl (9.6-12.3); MONO # 0.9 10*3/uL (0.1-1.0); MONO % 10.8 % (3.0-9.0); NEUT # 6.1 10*3/uL (2.3-7.9); NEUT % 73.5 % (47.0-73.0); PLATELET COUNT AUTOMATED 184 10*3/uL (130-400); RED BLOOD COUNT 4.66 10*6/uL (4.50-5.90); RED CELL DISTRI WIDTH 12.8 % (0-14.5); WHITE BLOOD COUNT 8.3 10*3/uL (4.8-10.8)
--- NOTE | 2020-07-29 07:00 | NUR ---
URINE FOR UA TO SENT TO LAB FOR TESTING. DRESSING TO RIGHT HAND REWRAPPED. NO C/O VOICEDE.
[2020-07-29 07:21] LABS: BILIRUBIN NEGATIVE; CLARITY CLEAR (CLEAR); COLOR YELLOW (YELLOW); GLUCOSE 1+; KETONE NEGATIVE
[2020-07-29 07:22] LABS: BLOOD NEGATIVE (NEGATIVE); LEUKO ESTERASE NEGATIVE (NEGATIVE); NITRITE NEGATIVE (NEGATIVE); PH 6.5 (4.5-8.0); SPECIFIC GRAVITY 1.015 (1.001-1.030)
--- NOTE | 2020-07-29 08:56 | NUR ---
PT RESTING. RESP. EASY. VSS. PT HAS MULTIPLE ABRASIONS AND SKIN TEARS NOTED ON BODY. PT ALSO HAS A BRUISED,SWOLLEN AREA TO LEFT LOWER LEG. PT DOES C/O GENERALIZED ACHES AND PAINS. PT STATES "JUST SORE ALL OVER." WILL CONTINUE TO MONITOR PT.
--- NOTE | 2020-07-29 10:30 | NUR ---
PT RESTING. NO ACUTE DISTRESS NOTED. PT DENIES NEED FOR PAIN MED AT THIS TIME.
--- NOTE | 2020-07-29 11:37 | NUR ---
DR OLIVER IN TO SEE PT. NEW ORDERS RECEIVED.
[2020-07-29] MEDS ORDERED: INSULIN LI100 UNIT/1 SC (11:40)
--- NOTE | 2020-07-29 16:03 | NUR ---
24 HR chart check completed.
--- NOTE | 2020-07-29 17:00 | NUR ---
RESTING IN BED WITH NO ACUTE DISTRESS NOTED. RESPIRATIONS EASY. LUNGS DIMINISHED, CLEAR. PULSE OX 97% RA. TUBI ORE SAMPLER APPLIED TO RLE AND LOOSELY ABOVE LEFT HEMATOMA. CALL LIGHT WITHIN REACH. NO VOICED COMPLAINTS
--- NOTE | 2020-07-29 20:42 | NUR ---
MEDICATED WITH PRN TYLENOL FOR C/O RIGHT SHOULDER PAIN RATED 4/10 ON A 0/10 PAIN SCALE. WILL MONITOR
--- NOTE | 2020-07-29 21:42 | NUR ---
PATIENT RESTING IN BED WITH EYES CLOSED. MEDICATION SEEMS EFFECTIVE
[2020-07-30] VITALS: BP 110/54
--- NOTE | 2020-07-30 02:13 | NUR ---
PATIENT RESTING IN BED WITH NO S/S OF DISTRESS. RESPS EASY AND REGULAR. BED IN LOWEST POSITION, BED ALARM ON, CALL LIGHT IN REACH
--- NOTE | 2020-07-30 02:13 | NUR ---
24 HR chart check completed.
--- NOTE | 2020-07-30 05:58 | NUR ---
PATIENT RESTING IN BED, DENIES NEEDS AT THIS TIME. BED IN LOWEST POSITION, CALL LIGHT IN REACH, BED ALARM ON
[2020-07-30 07:38] LABS: BASO % 0.4 % (0.0-1.0); EOS # 0.1 10*3/uL (0.0-0.4); EOS % 0.9 % (1.0-4.0); HEMATOCRIT 40.9 % (42.0-52.0); LYMPH # 1.7 10*3/uL (1.3-4.4); LYMPH % 22.7 % (27.0-41.0); MEAN CELL VOLUME 91.1 fl (80.0-94.0); MEAN CORPUSCULAR HGB 29.8 pg (27.0-31.0); MEAN CORPUSCULAR HGB CONC 32.8 g/dl (33.0-37.0); MEAN PLATELET VOLUME 9.4 fl (9.6-12.3); MONO % 13.3 % (3.0-9.0); NEUT # 4.7 10*3/uL (2.3-7.9); PLATELET COUNT AUTOMATED 153 10*3/uL (130-400); RED BLOOD COUNT 4.49 10*6/uL (4.50-5.90); WHITE BLOOD COUNT 7.6 10*3/uL (4.8-10.8)
--- NOTE | 2020-07-30 07:42 | NUR ---
Occupational therapy order and nursing screen received. Will follow up with the patient for completion of an OT evaluation. Thank you. Elissa Trejo, OTR/L
--- NOTE | 2020-07-30 07:54 | NUR ---
PHYSICAL THERAPY Screen and PT eval received will follow. Thank you. Hitesh Everett SPT Rebecca Watson PT
[2020-07-30 07:58] LABS: CREATININE 1.39 mg/dL (0.70-1.30); POTASSIUM 4.1 mmol/L (3.5-5.1)
[2020-07-30 08:00] VITALS: BP 142/76
--- NOTE | 2020-07-30 09:00 | NUR ---
Certified Nurse in to talk to patient. Patient states lives at home with alone. There are few steps in the home. Physician: nawaf ferris Pharmacy: [facility] health services: none Patient's level of ADLs: MINIMAL ASSIST Patient has working utilities: all working DME: rollator walker Follow-up physician's appointment after d/c: will be made by hospitalist nurse cortney garcia discharge Does patient want to access PORTAL?: no Discharge plan discussed with patient, physical therapy and occupational therapy were doing evaluation, he stated he lives at home alone, he has a daughter that lives next door but she has a disablity and is unable to help he on a daily basis. he stated he has had a few falls at home and the latest one being from a new rollator walker, rehab stated patient is unsteady and has balance issues, discussed with him a short term prison for 5 days of rehab and 24 hour care to increase strength and endurance prior to returning home, he was agreeable to this, given choice of facilities, he chose [facility], patient will be referred to [facility] when discharged, he will need a covid test, and an insurance precert prior to being discharged to [facility]. DENITA SANCHEZ
--- NOTE | 2020-07-30 09:05 | NUR ---
PHYSICAL THERAPY Physical Therapy evaluation completed on 4th floor with full evaluation to follow. Recommend physical therapy per plan of care and SNF upon discharge. Thank you for this referral. Rebecca Watson PT
--- NOTE | 2020-07-30 09:06 | NUR ---
Occupational Therapy evaluation completed on four with full evaluation to follow. Recommend occupational therapy per plan of care and SNF upon discharge. If refused, home with with / supervision assist to maximize patient safety. Patient expressed concerns of having an eye appointment at the [place] for his glaucoma that was scheduled for Thursday, 2019. Discussed with patient to speak with his daughter and case management to determine discharge plans and re-scheduling appointment. Thank you for this referral. Elissa Trejo, OTR/L
--- NOTE | 2020-07-30 09:09 | NUR ---
PT/OT IN TO SEE PT
--- NOTE | 2020-07-30 09:56 | NUR ---
PODITARY NOTIFIED OF CONSULT.
--- NOTE | 2020-07-30 10:24 | NUR ---
GROUP INSURANCE SPECIAL AGENT FAXED NEW REFERRAL TO [facility]. WILL NEED COVID RESULTS. PRECERT WILL BE REQUIRED.
--- NOTE | 2020-07-30 10:50 | NUR ---
COVID SWAB TAKEN TO LAB PER ORDERS.
--- NOTE | 2020-07-30 11:28 | NUR ---
GM RECEIVED PHONE CALL FROM PATIENTS DAUGHTER. PASSCODE OBTAINED. SHE REQUESTED BENEFITS BE SENT TO [facility] FOR REVIEW. GM FAXED THEM, GM ALSO INFORMED HER THIS PATIENTS INSURANCE IS OUT OF NETWORK AND UNLESS THERE WOULD BE OUT OF NETWORK BENEFITS A 30% OR MORE COPAY MAY BE REQUIRED. SHE UNDERSTOOD. DEMOGRAPHICS HAVE BEEN FAXED TO [facility] FOR REVIEW. GAS DISPATCHER IS AWARE.
[2020-07-30 12:00] VITALS: BP 106/62
--- NOTE | 2020-07-30 12:49 | NUR ---
KYLIE RECEIVED THE FOLLOWING TEXT FROM [facility] "HE HAS DERRICK HE IS OON BUT HIS OON AND IN NETWORK ARE THE SAME. FOR OON THERE IS NO DEDUCTIBLE, MAX OOP IS $10,000.00 AND OOP MET IS $31.27. DAYS 1-20 ARE COVERED AND DAYS 21-100 THE COPAY IS $178.00 PER DAY. AUTHORIZATION IS REQUIRED. HE HAS ALL 100 DAYS." AUTOMATIC LUMP MAKING MACHINE TENDER CONTACTED PATIENTS DAUGHTER SANDY, AND EXPLAINED THIS TO HER. SHE IS AGREEABLE TO HAVE COMPLETE REFERRAL FAXED OVER FOR REVIEW.
--- NOTE | 2020-07-30 14:43 | NUR ---
[facility] called stating they needed clinicals faxed to [phone] for review. Clinicals faxed
--- NOTE | 2020-07-30 15:04 | NUR ---
FILLING HAND NOTIFIED OF BILLING ERROR WITH [facility]. PER JC THIS PATIENT WILL HAVE A $20.00 A DAY CO PAY. FILLING HAND REACHED OUT TO THE PATIENTS DAUGHTER AND EXPLAINED THIS TO HER. SHE IS AGREEABLE. FILLING HAND ASKED JC TO START PRECERT.
[2020-07-30 16:00] VITALS: BP 127/57
--- NOTE | 2020-07-30 19:36 | NUR ---
PATIENT SITTING IN CHAIR AT BEDSIDE. AMBULATED TO BED WITH WALKER. DENIES NEEDS AT THIS TIME. BED ALARM ON, BED IN LOWEST POSITION, CALL LIGHT IN REACH
[2020-07-30 20:00] VITALS: BP 138/68
--- NOTE | 2020-07-30 20:10 | NUR ---
MEDICATED WITH PRN TYLENOL FOR C/O RIGHT SHOULDER PAIN. WILL MONITOR
--- NOTE | 2020-07-30 20:52 | NUR ---
PATIENT RESTING IN BED WITH EYES CLOSED. MEDICATION SEEMS EFFECTIVE
[2020-07-31] VITALS: BP 124/45
--- NOTE | 2020-07-31 02:03 | NUR ---
PATIENT RESTING IN BED WITH EYES CLOSED. RESPS EASY AND REGULAR. BED IN LOWEST POSITION, CALL LIGHT IN REACH
--- NOTE | 2020-07-31 07:14 | NUR ---
PRECERT HAS BEEN OBTAINED AND WILL BE GOOD UNTIL 08/02/2020. PATIENT CAN ADMIT TO [facility] PENDING RESULTS OF COVID.
--- NOTE | 2020-07-31 07:53 | NUR ---
OT NOTE Pt was laying supine in bed with head slighlty elevated agreeable to 13 minute OT session. Identified by name and date of with complaints of 5/10 right shoulder pain. Transfer supine to EOB SBA. Pt was able to bend at waist to fix hospital socks at CGA. sitting balance good-. Sit-stand from EOB CGA with w/w for UB support and safety. Functional mobility from EOB to bathroom CGA with w/w. Transferring on and off commode CGA with grab bar and w/w. Pt was able to stand sink side unsupported with w/w and CGA to wash hands. Standing balance good-. Functional mobility from bathroom to hallway and back to recliner CGA with w/w for safety. Pt was able to tolerate approx 5 minutes of activity tolerance without fatigue. Pt completed AROM to point of pain tolerance to right shoulder from recliner in all planes X10. Pts balance was challenged by weight shifting in all planes unsupported with w/w at CGA. standing balance good-. Pt was left in recliner with body alarm active and call light in reach. Continue d/c recommended SNF. ROCIO Moctezuma/KEN Nunes/Brandyn
--- NOTE | 2020-07-31 07:55 | NUR ---
PHYSICAL THERAPY Patient seen this am 1;1 for therapy visit and was supine in bed upon therapist arrival. Patient identified by name / and was very pleasant this morning, reporting 4/10 R shoulder pain from recent fall. OT assistant kitchen manager was also present for observation this session as patient transfers supine to sit EOB with CGA x 1, tolerating a minute or so to collect himself. Patient completed sit to stand transfer, CGA and ambulated with use of wh walker, CGA, 15'x 1 to bathroom, then additional 45'x 1, demonstrating slow michael, decreased stride and unsteady step sequence during all 90/180 turns. Patient able to take 3-4 backward steps, no LOB and needed v/c to improve focus on task during entire gait ex to prevent increased risk of falls. Patient returned to bedside chair and remained with call light, tray table, telephone and body alarm for safety. Will continue per POC as tolerated, total treatment time 16 minutes. Herrera Mendez, UROLOGY PHYSICIAN ASSISTANT
[2020-07-31 08:00] VITALS: BP 140/88
--- NOTE | 2020-07-31 08:25 | NUR ---
PT SITTING UP IN RECLINER CHAIR. RESP-EASY AND REGULAR. ECCYMOTIC AREAS RIGHT FOREHEAD, ELBOWS,ARMS AND LEGS. DRESSINGS CHANGED PER ORDER. NO C/O AT THIS TIME. DENIES PAIN. CALL LIGHT IN REACH. SEE SHIFT ASSESSMENT.
--- NOTE | 2020-07-31 09:00 | NUR ---
case management visits with patient, he will be going to [facility] for shor term detention for rehab prior to returning home, case management will follow
[2020-07-31] MEDS ORDERED: Humalog SQ (10:16)
[2020-07-31] MEDS ORDERED: BACITRACIN ZINC14 GM T (10:16)
[2020-07-31] MEDS ORDERED: DIPROSONE 0.05%15 GM T (10:16)
[2020-07-31] MEDS ORDERED: LANTUS SOL100 UNIT/1 SQ (10:16)
--- NOTE | 2020-07-31 10:45 | NUR ---
[employer] NOTIFIED OF PATIENT DISCHARGE. [employer] SPOKE WITH WILLIS JOSE. [facility] [facility] CONTACTED [facility] AND ARRANGED FOR A 1PM TRANSPORT. [facility] NOTIFIED [facility], AND PATIENTS DAUGHTER SANDY. [facility] TO FAX DEMOGRAPHICS TO [facility] AND DISCHARGE ORDERS TO [facility].
--- NOTE | 2020-07-31 11:28 | NUR ---
INSTALLATION SPECIALIST COMPLETED HENS.
--- NOTE | 2020-07-31 12:12 | NUR ---
PT SITTING UP IN RECLINER CHAIR. [id number], SEE EMAR. CALL LIGHT IN REACH.
--- NOTE | 2020-07-31 12:28 | NUR ---
PT ESCORTED VIA WHEELCHAIR TO ULTRASOUND.
--- NOTE | 2020-07-31 13:00 | NUR ---
PT SITTING UP IN CHAIR. RESP-EASY AND REGULAR. CALL LIGHT IN REACH.
--- NOTE | 2020-07-31 14:26 | NUR ---
Discharge instructions reviewed with patient/family. Patient receptive and verbalizes understanding. Follow-up care arranged. Written instructions given to patient/family. [facility]PLOCK REMOVED 2X2 APPLIED. ESCORTED VIA AMBULANCE TO [facility]. GERSON RIOS R
--- NOTE | 2020-07-31 14:33 | NUR ---
ADELA SLATER GAVE REPORT TO MICHAEL.
--- NOTE | 2020-07-31 15:14 | NUR ---
OCCUPATIONAL THERAPY CO-SIGN I approve of the Occupational Therapy notes written above. LENIN WATSON, OTR/L
--- NOTE | 2020-08-01 07:26 | NUR ---
PHYSICAL THERAPY CO-SIGN I approve of the Physical Therapy notes written above. Rebecca Watson PT
== END 2020-07-31 14:26 | disposition other institution (70) | DRG 604 ==
LOC: ED 19:53 → 4E 07-29 00:22 → EDHOLD 07-29 00:22 → 4E 07-29 00:22 → EDHOLD 07-29 00:22 → 4E 07-29 00:58
PROVIDERS: Hospitalist; Nurse Practitioner; Student in an Organized Health Care Education/Training Program; ADMIT Student in an Organized Health Care Education/Training Program; ATTEND Student in an Organized Health Care Education/Training Program
DX: S01.01XA Laceration without foreign body of scalp, initial encounter (principal); N17.0 Acute kidney failure with tubular necrosis; E44.0 Moderate protein-calorie malnutrition; R54 Age-related physical debility; E11.42 Type 2 diabetes mellitus with diabetic polyneuropathy; N40.0 Benign prostatic hyperplasia without lower urinary tract symptoms; K44.9 Diaphragmatic hernia without obstruction or gangrene; W10.8XXA Fall (on) (from) other stairs and steps, initial encounter; Z20.828 Contact with and (suspected) exposure to other viral communicable diseases; Z66 Do not resuscitate; Z51.5 Encounter for palliative care; S80.12XA Contusion of left lower leg, initial encounter; S40.211A Abrasion of right shoulder, initial encounter; E11.65 Type 2 diabetes mellitus with hyperglycemia; D72.810 Lymphocytopenia; Z79.01 Long term (current) use of anticoagulants; Z79.4 Long term (current) use of insulin; Z88.6 Allergy status to analgesic agent; Z98.42 Cataract extraction status, left eye; Z98.41 Cataract extraction status, right eye; Z90.49 Acquired absence of other specified parts of digestive tract; Z83.3 Family history of diabetes mellitus; Z84.89 Family history of other specified conditions; Z86.718 Personal history of other venous thrombosis and embolism; Z86.711 Personal history of pulmonary embolism; Z85.46 Personal history of malignant neoplasm of prostate; Y93.01 Activity, walking, marching and hiking; Y92.89 Other specified places as the place of occurrence of the external cause; Y99.8 Other external cause status; Z68.26 Body mass index [BMI] 26.0-26.9, adult; I67.9 Cerebrovascular disease, unspecified; T14.90XA Injury, unspecified, initial encounter

== ENCOUNTER → 2020-10-16 | Outpatient (CLI) | payer OTHER ==
[~2020-10-16] MED LIST changes: +ALOGLIPTIN12.5 MG PO; +BACITRACIN ZINC14 GM T; +DIPROSONE 0.05%15 GM T; +Humalog SQ; +INSULIN LI100 UNIT/1 SC; +LATANOPROST2.5 ML OP; +PROZAC20 MG PO; +XARE15TA PO
== END | disposition home or self-care (01) ==
LOC: US 12:00
PROVIDERS: ATTEND Podiatrist
DX: M79.605 Pain in left leg (principal)

== ENCOUNTER → 2020-10-30 | Outpatient (CLI) | payer OTHER | END | disposition home or self-care (01) | LOC: US 10:49 | PROVIDERS: ATTEND Podiatrist | DX: M79.605 Pain in left leg (principal); R60.0 Localized edema ==

== ENCOUNTER → 2020-11-22 | Outpatient (CLI) | payer OTHER | END | disposition home or self-care (01) | LOC: WOUNDCARE 00:58 | PROVIDERS: ATTEND Nurse Practitioner | DX: E11.621 Type 2 diabetes mellitus with foot ulcer (principal); L97.522 Non-pressure chronic ulcer of other part of left foot with fat layer exposed; E11.51 Type 2 diabetes mellitus with diabetic peripheral angiopathy without gangrene; E11.40 Type 2 diabetes mellitus with diabetic neuropathy, unspecified; Z90.49 Acquired absence of other specified parts of digestive tract; Z87.891 Personal history of nicotine dependence ==

== ENCOUNTER → 2020-11-29 | Outpatient (CLI) | payer OTHER | LOC: WOUNDCARE 01:29 | PROVIDERS: ATTEND Nurse Practitioner | DX: E11.621 Type 2 diabetes mellitus with foot ulcer (principal); L97.522 Non-pressure chronic ulcer of other part of left foot with fat layer exposed; E11.51 Type 2 diabetes mellitus with diabetic peripheral angiopathy without gangrene; E11.40 Type 2 diabetes mellitus with diabetic neuropathy, unspecified; Z90.49 Acquired absence of other specified parts of digestive tract; Z87.891 Personal history of nicotine dependence ==

== ENCOUNTER → 2020-12-13 | Outpatient (CLI) | payer OTHER | END | disposition home or self-care (01) | LOC: WOUNDCARE 02:04 | PROVIDERS: ATTEND Nurse Practitioner | DX: E11.621 Type 2 diabetes mellitus with foot ulcer (principal); L97.522 Non-pressure chronic ulcer of other part of left foot with fat layer exposed; E11.51 Type 2 diabetes mellitus with diabetic peripheral angiopathy without gangrene; L84 Corns and callosities; E11.40 Type 2 diabetes mellitus with diabetic neuropathy, unspecified; Z90.49 Acquired absence of other specified parts of digestive tract; Z87.891 Personal history of nicotine dependence ==

== ENCOUNTER → 2020-12-20 | Outpatient (CLI) | payer OTHER | LOC: WOUNDCARE 01:41 | PROVIDERS: ATTEND Nurse Practitioner | DX: E11.621 Type 2 diabetes mellitus with foot ulcer (principal); L97.522 Non-pressure chronic ulcer of other part of left foot with fat layer exposed; E11.51 Type 2 diabetes mellitus with diabetic peripheral angiopathy without gangrene; L84 Corns and callosities; E11.40 Type 2 diabetes mellitus with diabetic neuropathy, unspecified; Z90.49 Acquired absence of other specified parts of digestive tract; Z87.891 Personal history of nicotine dependence ==

== ENCOUNTER → 2021-01-07 | Outpatient (CLI) | payer OTHER | LOC: WOUNDCARE 00:56 | PROVIDERS: ATTEND Nurse Practitioner | DX: E11.621 Type 2 diabetes mellitus with foot ulcer (principal); L97.526 Non-pressure chronic ulcer of other part of left foot with bone involvement without evidence of necrosis; E11.51 Type 2 diabetes mellitus with diabetic peripheral angiopathy without gangrene; L84 Corns and callosities; E11.40 Type 2 diabetes mellitus with diabetic neuropathy, unspecified; Z90.49 Acquired absence of other specified parts of digestive tract; Z87.891 Personal history of nicotine dependence ==

== ENCOUNTER → 2021-01-14 | Outpatient (CLI) | payer OTHER | LOC: WOUNDCARE 00:31 | PROVIDERS: ATTEND Nurse Practitioner | DX: E11.621 Type 2 diabetes mellitus with foot ulcer (principal); L97.526 Non-pressure chronic ulcer of other part of left foot with bone involvement without evidence of necrosis; E11.51 Type 2 diabetes mellitus with diabetic peripheral angiopathy without gangrene; L84 Corns and callosities; E11.40 Type 2 diabetes mellitus with diabetic neuropathy, unspecified; Z90.49 Acquired absence of other specified parts of digestive tract; Z87.891 Personal history of nicotine dependence ==

== ENCOUNTER → 2021-01-21 | Outpatient (CLI) | payer OTHER | LOC: WOUNDCARE 01:50 | PROVIDERS: ATTEND Nurse Practitioner | DX: E11.621 Type 2 diabetes mellitus with foot ulcer (principal); L97.526 Non-pressure chronic ulcer of other part of left foot with bone involvement without evidence of necrosis; E11.51 Type 2 diabetes mellitus with diabetic peripheral angiopathy without gangrene; L84 Corns and callosities; E11.40 Type 2 diabetes mellitus with diabetic neuropathy, unspecified; Z90.49 Acquired absence of other specified parts of digestive tract; Z87.891 Personal history of nicotine dependence ==

== ENCOUNTER → 2021-01-28 | Outpatient (CLI) | payer OTHER | LOC: WOUNDCARE 00:35 | PROVIDERS: ATTEND Nurse Practitioner | DX: E11.621 Type 2 diabetes mellitus with foot ulcer (principal); L97.528 Non-pressure chronic ulcer of other part of left foot with other specified severity; E11.51 Type 2 diabetes mellitus with diabetic peripheral angiopathy without gangrene; L84 Corns and callosities; E11.40 Type 2 diabetes mellitus with diabetic neuropathy, unspecified; Z90.49 Acquired absence of other specified parts of digestive tract; Z87.891 Personal history of nicotine dependence ==

== ENCOUNTER → 2021-04-23 | Outpatient (CLI) | payer OTHER | LOC: WOUNDCARE 01:06 | PROVIDERS: ATTEND Nurse Practitioner | DX: E11.621 Type 2 diabetes mellitus with foot ulcer (principal); L97.522 Non-pressure chronic ulcer of other part of left foot with fat layer exposed; L84 Corns and callosities; E11.51 Type 2 diabetes mellitus with diabetic peripheral angiopathy without gangrene; E11.40 Type 2 diabetes mellitus with diabetic neuropathy, unspecified; Z90.49 Acquired absence of other specified parts of digestive tract; Z87.891 Personal history of nicotine dependence ==

== ENCOUNTER → 2021-04-30 | Outpatient (CLI) | payer OTHER | LOC: WOUNDCARE 01:28 | PROVIDERS: ATTEND Nurse Practitioner | DX: E11.621 Type 2 diabetes mellitus with foot ulcer (principal); L97.522 Non-pressure chronic ulcer of other part of left foot with fat layer exposed; L84 Corns and callosities; E11.51 Type 2 diabetes mellitus with diabetic peripheral angiopathy without gangrene; E11.40 Type 2 diabetes mellitus with diabetic neuropathy, unspecified; Z90.49 Acquired absence of other specified parts of digestive tract; Z87.891 Personal history of nicotine dependence ==

== ENCOUNTER → 2021-05-07 | Outpatient (CLI) | payer OTHER | LOC: WOUNDCARE 01:18 | PROVIDERS: ATTEND Nurse Practitioner | DX: E11.621 Type 2 diabetes mellitus with foot ulcer (principal); L97.522 Non-pressure chronic ulcer of other part of left foot with fat layer exposed; L84 Corns and callosities; E11.51 Type 2 diabetes mellitus with diabetic peripheral angiopathy without gangrene; E11.40 Type 2 diabetes mellitus with diabetic neuropathy, unspecified; Z90.49 Acquired absence of other specified parts of digestive tract; Z87.891 Personal history of nicotine dependence ==

== ENCOUNTER → 2021-05-14 | Outpatient (CLI) | payer OTHER | LOC: WOUNDCARE 01:33 | PROVIDERS: ATTEND Nurse Practitioner | DX: E11.621 Type 2 diabetes mellitus with foot ulcer (principal); L97.522 Non-pressure chronic ulcer of other part of left foot with fat layer exposed; L84 Corns and callosities; E11.51 Type 2 diabetes mellitus with diabetic peripheral angiopathy without gangrene; E11.40 Type 2 diabetes mellitus with diabetic neuropathy, unspecified; Z87.891 Personal history of nicotine dependence ==

== ENCOUNTER → 2021-05-21 | Outpatient (CLI) | payer OTHER ==
[~2021-05-21] MED LIST changes: +LANTUS SOL100 UNIT/1 SC; +NOVOLOG100 UNIT/1 SC
== END ==
LOC: WOUNDCARE 01:11
PROVIDERS: ATTEND Nurse Practitioner
DX: E11.621 Type 2 diabetes mellitus with foot ulcer (principal); L97.522 Non-pressure chronic ulcer of other part of left foot with fat layer exposed; L84 Corns and callosities; E11.51 Type 2 diabetes mellitus with diabetic peripheral angiopathy without gangrene; E11.40 Type 2 diabetes mellitus with diabetic neuropathy, unspecified; Z87.891 Personal history of nicotine dependence

== ENCOUNTER 2021-05-23 10:54 | Inpatient (IN) | payer OTHER ==
[~2021-05-23] VITALS: Ht 177.8 cm
[~2021-05-23 10:54] MED LIST changes: -LANTUS SOL100 UNIT/1 SC; -NOVOLOG100 UNIT/1 SC
[2021-05-23 11:05] VITALS: BP 116/61
[2021-05-23 12:03] LABS: BASO % 0.2 % (0.0-1.0); EOS % 0.5 % (1.0-4.0); HEMATOCRIT 42.2 % (42.0-52.0); LYMPH # 1.2 10*3/uL (1.3-4.4); LYMPH % 13.4 % (27.0-41.0); MEAN CELL VOLUME 91.5 fl (80.0-94.0); MEAN CORPUSCULAR HGB 29.7 pg (27.0-31.0); MEAN CORPUSCULAR HGB CONC 32.5 g/dl (33.0-37.0); MEAN PLATELET VOLUME 9.2 fl (9.6-12.3); MONO # 1.2 10*3/uL (0.1-1.0); MONO % 13.1 % (3.0-9.0); NEUT # 6.3 10*3/uL (2.3-7.9); NEUT % 72.2 % (47.0-73.0); PLATELET COUNT AUTOMATED 192 10*3/uL (130-400); RED BLOOD COUNT 4.61 10*6/uL (4.50-5.90); RED CELL DISTRI WIDTH 13.2 % (0-14.5); WHITE BLOOD COUNT 8.8 10*3/uL (4.8-10.8)
[2021-05-23 12:19] LABS: ALBUMIN 2.8 gm/dl (3.1-4.5); ALKALINE PHOSPHATASE 61 U/L (45-117); BUN 18 mg/dl (7-24); CHLORIDE 106 mmol/L (98-107); CREATININE 1.33 mg/dL (0.70-1.30); POTASSIUM 4.1 mmol/L (3.5-5.1); SGOT/AST 14 IU/L (3-35); SGPT/ALT 15 U/L (12-78); SODIUM 135 mmol/L (136-145); TOTAL PROTEIN 7.3 gm/dL (6.4-8.2)
[2021-05-23 13:40] VITALS: BP 177/88
[2021-05-23] MEDS ORDERED: LANTUS SOL100 UNIT/1 SC (13:44)
[2021-05-23] MEDS ORDERED: NOVOLOG100 UNIT/1 SC (13:45)
[2021-05-23 16:00] VITALS: BP 152/78
[2021-05-23 20:00] VITALS: BP 126/59; BP 126/61
[2021-05-24] VITALS (8 sets, daily range): BP systolic 98–147; BP diastolic 47–78
[2021-05-24 06:31] LABS: BASO % 0.4 % (0.0-1.0); EOS # 0.1 10*3/uL (0.0-0.4); EOS % 1.5 % (1.0-4.0); HEMATOCRIT 38.8 % (42.0-52.0); LYMPH # 1.4 10*3/uL (1.3-4.4); MEAN CELL VOLUME 92.2 fl (80.0-94.0); MEAN CORPUSCULAR HGB 30.2 pg (27.0-31.0); MEAN CORPUSCULAR HGB CONC 32.7 g/dl (33.0-37.0); MEAN PLATELET VOLUME 9.6 fl (9.6-12.3); MONO # 1.1 10*3/uL (0.1-1.0); MONO % 13.5 % (3.0-9.0); NEUT # 5.6 10*3/uL (2.3-7.9); NEUT % 66.9 % (47.0-73.0); PLATELET COUNT AUTOMATED 177 10*3/uL (130-400); RED BLOOD COUNT 4.21 10*6/uL (4.50-5.90); RED CELL DISTRI WIDTH 13.2 % (0-14.5); WHITE BLOOD COUNT 8.4 10*3/uL (4.8-10.8)
[2021-05-24 06:50] LABS: CHLORIDE 107 mmol/L (98-107); POTASSIUM 4.1 mmol/L (3.5-5.1); SODIUM 138 mmol/L (136-145)
[2021-05-24 07:19] LABS: ALBUMIN 2.5 gm/dl (3.1-4.5); ALKALINE PHOSPHATASE 55 U/L (45-117); BUN 17 mg/dl (7-24); CREATININE 1.27 mg/dL (0.70-1.30); SGOT/AST 16 IU/L (3-35); SGPT/ALT 13 U/L (12-78); TOTAL PROTEIN 6.8 gm/dL (6.4-8.2)
[2021-05-24 08:00] LABS: VITAMIN D, 25-HYDROXY 35.3 ng/mL (30-100)
[2021-05-25] VITALS: BP 121/61
[2021-05-25 08:00] VITALS: BP 122/58
[2021-05-25 12:00] VITALS: BP 118/70
[2021-05-25 16:00] VITALS: BP 112/59
[2021-05-25 20:00] VITALS: BP 113/56
[2021-05-26] VITALS: BP 115/66
[2021-05-26 06:17] LABS: BASO % 0.6 % (0.0-1.0); EOS # 0.2 10*3/uL (0.0-0.4); EOS % 3.7 % (1.0-4.0); HEMATOCRIT 36.6 % (42.0-52.0); LYMPH # 1.6 10*3/uL (1.3-4.4); LYMPH % 24.7 % (27.0-41.0); MEAN CELL VOLUME 92.4 fl (80.0-94.0); MEAN CORPUSCULAR HGB 30.3 pg (27.0-31.0); MEAN CORPUSCULAR HGB CONC 32.8 g/dl (33.0-37.0); MEAN PLATELET VOLUME 9.7 fl (9.6-12.3); MONO # 0.8 10*3/uL (0.1-1.0); MONO % 12.4 % (3.0-9.0); NEUT # 3.8 10*3/uL (2.3-7.9); NEUT % 57.8 % (47.0-73.0); PLATELET COUNT AUTOMATED 198 10*3/uL (130-400); RED BLOOD COUNT 3.96 10*6/uL (4.50-5.90); RED CELL DISTRI WIDTH 13.1 % (0-14.5); WHITE BLOOD COUNT 6.5 10*3/uL (4.8-10.8)
[2021-05-26 06:53] LABS: CHLORIDE 111 mmol/L (98-107); POTASSIUM 3.8 mmol/L (3.5-5.1); SODIUM 142 mmol/L (136-145)
[2021-05-26 07:05] LABS: ALBUMIN 2.3 gm/dl (3.1-4.5); ALKALINE PHOSPHATASE 56 U/L (45-117); BUN 21 mg/dl (7-24); CREATININE 1.28 mg/dL (0.70-1.30); SGOT/AST 15 IU/L (3-35); SGPT/ALT 16 U/L (12-78); TOTAL PROTEIN 6.2 gm/dL (6.4-8.2)
[2021-05-26 08:00] VITALS: BP 120/68
[2021-05-26 12:00] VITALS: BP 120/70
[2021-05-26 16:00] VITALS: BP 101/73
[2021-05-26 20:00] VITALS: BP 120/63
[2021-05-27] VITALS: BP 121/72
[2021-05-27 06:12] LABS: BASO # 0.1 10*3/uL (0.0-0.1); BASO % 0.9 % (0.0-1.0); EOS # 0.2 10*3/uL (0.0-0.4); EOS % 3.8 % (1.0-4.0); HEMATOCRIT 36.8 % (42.0-52.0); LYMPH # 1.3 10*3/uL (1.3-4.4); MEAN CELL VOLUME 91.5 fl (80.0-94.0); MEAN CORPUSCULAR HGB 29.9 pg (27.0-31.0); MEAN CORPUSCULAR HGB CONC 32.6 g/dl (33.0-37.0); MEAN PLATELET VOLUME 9.5 fl (9.6-12.3); MONO # 0.7 10*3/uL (0.1-1.0); NEUT # 3.1 10*3/uL (2.3-7.9); NEUT % 57.4 % (47.0-73.0); PLATELET COUNT AUTOMATED 194 10*3/uL (130-400); RED BLOOD COUNT 4.02 10*6/uL (4.50-5.90); WHITE BLOOD COUNT 5.5 10*3/uL (4.8-10.8)
[2021-05-27 06:39] LABS: ALBUMIN 2.3 gm/dl (3.1-4.5); ALKALINE PHOSPHATASE 52 U/L (45-117); BUN 18 mg/dl (7-24); CHLORIDE 110 mmol/L (98-107); CREATININE 1.13 mg/dL (0.70-1.30); POTASSIUM 3.7 mmol/L (3.5-5.1); SGOT/AST 14 IU/L (3-35); SGPT/ALT 15 U/L (12-78); SODIUM 140 mmol/L (136-145); TOTAL PROTEIN 6.2 gm/dL (6.4-8.2)
[2021-05-27 08:00] VITALS: BP 123/67
[2021-05-27 12:00] VITALS: BP 103/57
[2021-05-27 16:00] VITALS: BP 110/59
[2021-05-27 20:00] VITALS: BP 115/57
[2021-05-28] VITALS: BP 139/60
[2021-05-28 08:00] VITALS: BP 120/70
[2021-05-28 12:00] VITALS: BP 144/68
[2021-05-28 16:00] VITALS: BP 119/61
[2021-05-28 20:00] VITALS: BP 106/56
[2021-05-29] VITALS: BP 111/57
[2021-05-29 08:00] VITALS: BP 134/64
[2021-05-29 12:00] VITALS: BP 136/88
[2021-05-29 16:00] VITALS: BP 141/72
[2021-05-29 20:00] VITALS: BP 121/63
[2021-05-30 00:08] VITALS: BP 115/65
[2021-05-30 08:00] VITALS: BP 130/60
[2021-05-30] MEDS ORDERED: NEURONTIN300 MG PO (11:18)
[2021-05-30 11:20] VITALS: BP 127/64
== END 2021-05-30 15:45 | DRG 622 ==
LOC: ED 10:54 → EDHOLD 11:53 → 4E 11:53 → EDHOLD 12:49 → 4E 12:50
PROVIDERS: Emergency Medicine; Internal Medicine; Social Worker Clinical; ADMIT Family Medicine; ATTEND Family Medicine
PROC: 0JBR0ZZ Excision of Left Foot Subcutaneous Tissue and Fascia, Open Approach (ICD-10-PCS; principal; 2021-05-24)
DX: E11.621 Type 2 diabetes mellitus with foot ulcer (principal); E43 Unspecified severe protein-calorie malnutrition; L97.429 Non-pressure chronic ulcer of left heel and midfoot with unspecified severity; L03.116 Cellulitis of left lower limb; E87.1 Hypo-osmolality and hyponatremia; K44.9 Diaphragmatic hernia without obstruction or gangrene; E11.22 Type 2 diabetes mellitus with diabetic chronic kidney disease; N40.0 Benign prostatic hyperplasia without lower urinary tract symptoms; D64.9 Anemia, unspecified; Z20.822 Contact with and (suspected) exposure to COVID-19; E11.49 Type 2 diabetes mellitus with other diabetic neurological complication; Z66 Do not resuscitate; Z51.5 Encounter for palliative care; N18.30 Chronic kidney disease, stage 3 unspecified; Z79.4 Long term (current) use of insulin; Z88.8 Allergy status to other drugs, medicaments and biological substances; Z98.42 Cataract extraction status, left eye; Z98.41 Cataract extraction status, right eye; Z90.49 Acquired absence of other specified parts of digestive tract; Z87.891 Personal history of nicotine dependence; Z83.3 Family history of diabetes mellitus; Z86.718 Personal history of other venous thrombosis and embolism; Z85.46 Personal history of malignant neoplasm of prostate; Z78.9 Other specified health status; Z86.711 Personal history of pulmonary embolism; Z68.23 Body mass index [BMI] 23.0-23.9, adult

== ENCOUNTER → 2021-06-04 | Outpatient (CLI) | payer OTHER ==
[~2021-06-04] MED LIST changes: +ELIQUIS5 M1 PO; +LANTUS SOL100 UNIT/1 SC; +NOVOLOG100 UNIT/1 SC; +VIBRAMYCIN100 MG PO; +ZOSYN 3.373.375 GM/1 IV
== END ==
LOC: WOUNDCARE 02:41
PROVIDERS: ATTEND Surgery
DX: E11.621 Type 2 diabetes mellitus with foot ulcer (principal); L97.522 Non-pressure chronic ulcer of other part of left foot with fat layer exposed; L84 Corns and callosities; L03.116 Cellulitis of left lower limb; E11.51 Type 2 diabetes mellitus with diabetic peripheral angiopathy without gangrene; E11.40 Type 2 diabetes mellitus with diabetic neuropathy, unspecified; Z87.891 Personal history of nicotine dependence

== ENCOUNTER → 2021-06-11 | Outpatient (CLI) | payer OTHER | LOC: WOUNDCARE 01:42 | PROVIDERS: ATTEND Surgery | DX: E11.621 Type 2 diabetes mellitus with foot ulcer (principal); L97.522 Non-pressure chronic ulcer of other part of left foot with fat layer exposed; L84 Corns and callosities; L03.116 Cellulitis of left lower limb; E11.51 Type 2 diabetes mellitus with diabetic peripheral angiopathy without gangrene; E11.40 Type 2 diabetes mellitus with diabetic neuropathy, unspecified; Z87.891 Personal history of nicotine dependence ==

== ENCOUNTER → 2021-06-18 | Outpatient (CLI) | payer OTHER | LOC: WOUNDCARE 01:29 | PROVIDERS: ATTEND Surgery | DX: E11.621 Type 2 diabetes mellitus with foot ulcer (principal); L97.522 Non-pressure chronic ulcer of other part of left foot with fat layer exposed; L84 Corns and callosities; L03.116 Cellulitis of left lower limb; E11.51 Type 2 diabetes mellitus with diabetic peripheral angiopathy without gangrene; E11.40 Type 2 diabetes mellitus with diabetic neuropathy, unspecified; Z87.891 Personal history of nicotine dependence ==

== ENCOUNTER 2021-06-23 10:52 | Emergency (ER) | payer OTHER ==
[~2021-06-23] VITALS: Wt 72.6 kg
[~2021-06-23 10:52] MED LIST changes: -ELIQUIS5 M1 PO; -VIBRAMYCIN100 MG PO; -ZOSYN 3.373.375 GM/1 IV
[2021-06-23 11:19] LABS: BASO % 0.3 % (0.0-1.0); EOS # 0.1 10*3/uL (0.0-0.4); HEMATOCRIT 38.6 % (42.0-52.0); LYMPH # 1.3 10*3/uL (1.3-4.4); LYMPH % 14.8 % (27.0-41.0); MEAN CELL VOLUME 91.9 fl (80.0-94.0); MEAN CORPUSCULAR HGB 29.8 pg (27.0-31.0); MEAN CORPUSCULAR HGB CONC 32.4 g/dl (33.0-37.0); MEAN PLATELET VOLUME 9.4 fl (9.6-12.3); MONO # 1.1 10*3/uL (0.1-1.0); MONO % 12.3 % (3.0-9.0); NEUT # 6.4 10*3/uL (2.3-7.9); PLATELET COUNT AUTOMATED 238 10*3/uL (130-400); RED CELL DISTRI WIDTH 13.2 % (0-14.5); WHITE BLOOD COUNT 8.9 10*3/uL (4.8-10.8)
[2021-06-23 11:42] LABS: ALBUMIN 2.6 gm/dl (3.1-4.5); ALKALINE PHOSPHATASE 114 U/L (45-117); BUN 19 mg/dl (7-24); CHLORIDE 106 mmol/L (98-107); CREATININE 1.28 mg/dL (0.70-1.30); POTASSIUM 4.2 mmol/L (3.5-5.1); SGOT/AST 15 IU/L (3-35); SGPT/ALT 20 U/L (12-78); SODIUM 139 mmol/L (136-145); TOTAL PROTEIN 7.5 gm/dL (6.4-8.2)
[2021-06-23] MEDS ORDERED: VIBRAMYCIN100 MG PO ×2 (12:35)
== END 2021-06-23 12:54 | disposition home or self-care (01) ==
LOC: ED 10:52
PROVIDERS: Physician Assistant
DX: L03.116 Cellulitis of left lower limb (principal); E11.621 Type 2 diabetes mellitus with foot ulcer; Z88.8 Allergy status to other drugs, medicaments and biological substances; Z79.899 Other long term (current) drug therapy; Z79.4 Long term (current) use of insulin; Z90.49 Acquired absence of other specified parts of digestive tract; Z98.890 Other specified postprocedural states; Z87.891 Personal history of nicotine dependence

== ENCOUNTER → 2021-06-25 | Outpatient (CLI) | payer OTHER ==
[~2021-06-25] MED LIST changes: +ELIQUIS5 M1 PO; +VIBRAMYCIN100 MG PO; +ZOSYN 3.373.375 GM/1 IV
== END ==
LOC: WOUNDCARE 01:03
PROVIDERS: ATTEND Surgery
DX: E11.621 Type 2 diabetes mellitus with foot ulcer (principal); L97.522 Non-pressure chronic ulcer of other part of left foot with fat layer exposed; L84 Corns and callosities; L03.116 Cellulitis of left lower limb; E11.51 Type 2 diabetes mellitus with diabetic peripheral angiopathy without gangrene; E11.40 Type 2 diabetes mellitus with diabetic neuropathy, unspecified; Z87.891 Personal history of nicotine dependence

== ENCOUNTER 2021-07-02 14:30 | Inpatient (IN) | payer OTHER ==
[~2021-07-02] VITALS: Ht 177.8 cm; Wt 71.7 kg
[~2021-07-02 14:30] MED LIST changes: -ELIQUIS5 M1 PO; -ZOSYN 3.373.375 GM/1 IV
[2021-07-02 14:38] VITALS: BP 128/41
[2021-07-02 15:23] LABS: BASO % 0.2 % (0.0-1.0); EOS # 0.1 10*3/uL (0.0-0.4); EOS % 1.5 % (1.0-4.0); HEMATOCRIT 38.3 % (42.0-52.0); LYMPH # 1.5 10*3/uL (1.3-4.4); MEAN CELL VOLUME 90.5 fl (80.0-94.0); MEAN CORPUSCULAR HGB 29.8 pg (27.0-31.0); MEAN CORPUSCULAR HGB CONC 32.9 g/dl (33.0-37.0); MEAN PLATELET VOLUME 9.5 fl (9.6-12.3); MONO % 11.9 % (3.0-9.0); NEUT # 5.6 10*3/uL (2.3-7.9); PLATELET COUNT AUTOMATED 282 10*3/uL (130-400); RED BLOOD COUNT 4.23 10*6/uL (4.50-5.90); RED CELL DISTRI WIDTH 12.7 % (0-14.5); WHITE BLOOD COUNT 8.4 10*3/uL (4.8-10.8)
[2021-07-02 15:37] LABS: ALBUMIN 2.6 gm/dl (3.1-4.5); CREATININE 1.36 mg/dL (0.70-1.30); TOTAL PROTEIN 7.7 gm/dL (6.4-8.2)
[2021-07-02 17:26] VITALS: BP 132/78
[2021-07-02 17:30] VITALS: BP 153/85
[2021-07-02 20:00] VITALS: BP 131/65
[2021-07-03] VITALS: BP 138/84; BP 153/85
[2021-07-03 05:55] LABS: ALBUMIN 2.1 gm/dl (3.1-4.5); BUN 15 mg/dl (7-24); CHLORIDE 110 mmol/L (98-107); CREATININE 1.14 mg/dL (0.70-1.30); POTASSIUM 3.8 mmol/L (3.5-5.1); SGOT/AST 12 IU/L (3-35); SGPT/ALT 11 U/L (12-78); SODIUM 141 mmol/L (136-145)
[2021-07-03 05:56] LABS: ALKALINE PHOSPHATASE 71 U/L (45-117); TOTAL PROTEIN 6.2 gm/dL (6.4-8.2)
[2021-07-03 06:15] LABS: BASO % 0.5 % (0.0-1.0); EOS # 0.2 10*3/uL (0.0-0.4); EOS % 3.1 % (1.0-4.0); HEMATOCRIT 34.1 % (42.0-52.0); LYMPH # 1.3 10*3/uL (1.3-4.4); LYMPH % 19.8 % (27.0-41.0); MEAN CELL VOLUME 91.7 fl (80.0-94.0); MEAN CORPUSCULAR HGB 29.6 pg (27.0-31.0); MEAN CORPUSCULAR HGB CONC 32.3 g/dl (33.0-37.0); MEAN PLATELET VOLUME 9.8 fl (9.6-12.3); MONO # 0.8 10*3/uL (0.1-1.0); MONO % 12.9 % (3.0-9.0); NEUT # 4.1 10*3/uL (2.3-7.9); NEUT % 62.6 % (47.0-73.0); PLATELET COUNT AUTOMATED 221 10*3/uL (130-400); RED BLOOD COUNT 3.72 10*6/uL (4.50-5.90); RED CELL DISTRI WIDTH 12.8 % (0-14.5); WHITE BLOOD COUNT 6.5 10*3/uL (4.8-10.8)
[2021-07-03 08:00] VITALS: BP 122/85
[2021-07-03 12:00] VITALS: BP 160/67
[2021-07-03 16:00] VITALS: BP 150/61
[2021-07-03 20:00] VITALS: BP 157/87
[2021-07-04] VITALS: BP 115/60
[2021-07-04 06:25] LABS: BASO % 0.4 % (0.0-1.0); EOS # 0.3 10*3/uL (0.0-0.4); EOS % 4.6 % (1.0-4.0); HEMATOCRIT 33.7 % (42.0-52.0); LYMPH % 13.6 % (27.0-41.0); MEAN CELL VOLUME 91.8 fl (80.0-94.0); MEAN CORPUSCULAR HGB 29.4 pg (27.0-31.0); MEAN PLATELET VOLUME 9.9 fl (9.6-12.3); MONO # 0.9 10*3/uL (0.1-1.0); MONO % 12.1 % (3.0-9.0); NEUT # 4.9 10*3/uL (2.3-7.9); PLATELET COUNT AUTOMATED 227 10*3/uL (130-400); RED BLOOD COUNT 3.67 10*6/uL (4.50-5.90); RED CELL DISTRI WIDTH 12.9 % (0-14.5); WHITE BLOOD COUNT 7.2 10*3/uL (4.8-10.8)
[2021-07-04 06:26] LABS: BUN 12 mg/dl (7-24); CHLORIDE 109 mmol/L (98-107); POTASSIUM 3.9 mmol/L (3.5-5.1); SODIUM 141 mmol/L (136-145)
[2021-07-04 06:28] LABS: CREATININE 1.22 mg/dL (0.70-1.30)
[2021-07-04 08:00] VITALS: BP 137/60
[2021-07-04 12:00] VITALS: BP 127/64
[2021-07-04 16:00] VITALS: BP 120/72
[2021-07-04 20:00] VITALS: BP 118/50
[2021-07-05] VITALS: BP 118/63
[2021-07-05 06:17] LABS: BASO % 0.6 % (0.0-1.0); EOS # 0.4 10*3/uL (0.0-0.4); EOS % 6.2 % (1.0-4.0); HEMATOCRIT 34.1 % (42.0-52.0); LYMPH % 14.1 % (27.0-41.0); MEAN CELL VOLUME 90.7 fl (80.0-94.0); MEAN CORPUSCULAR HGB 29.8 pg (27.0-31.0); MEAN CORPUSCULAR HGB CONC 32.8 g/dl (33.0-37.0); MEAN PLATELET VOLUME 9.9 fl (9.6-12.3); MONO # 0.9 10*3/uL (0.1-1.0); MONO % 12.8 % (3.0-9.0); NEUT # 4.5 10*3/uL (2.3-7.9); PLATELET COUNT AUTOMATED 234 10*3/uL (130-400); RED BLOOD COUNT 3.76 10*6/uL (4.50-5.90); RED CELL DISTRI WIDTH 12.8 % (0-14.5); WHITE BLOOD COUNT 6.9 10*3/uL (4.8-10.8)
[2021-07-05 06:22] LABS: POTASSIUM 3.9 mmol/L (3.5-5.1)
[2021-07-05 06:27] LABS: CREATININE 1.37 mg/dL (0.70-1.30)
[2021-07-05 08:00] VITALS: BP 132/65
[2021-07-05 12:00] VITALS: BP 138/70
[2021-07-05 16:00] VITALS: BP 128/64
[2021-07-05 20:00] VITALS: BP 140/62
[2021-07-06] VITALS: BP 119/58
[2021-07-06 06:16] LABS: BASO % 0.3 % (0.0-1.0); EOS # 0.3 10*3/uL (0.0-0.4); EOS % 4.9 % (1.0-4.0); HEMATOCRIT 36.3 % (42.0-52.0); LYMPH # 0.9 10*3/uL (1.3-4.4); LYMPH % 12.6 % (27.0-41.0); MEAN CELL VOLUME 92.4 fl (80.0-94.0); MEAN CORPUSCULAR HGB 29.3 pg (27.0-31.0); MEAN CORPUSCULAR HGB CONC 31.7 g/dl (33.0-37.0); MEAN PLATELET VOLUME 9.7 fl (9.6-12.3); MONO # 0.8 10*3/uL (0.1-1.0); MONO % 11.1 % (3.0-9.0); NEUT # 4.7 10*3/uL (2.3-7.9); NEUT % 70.1 % (47.0-73.0); PLATELET COUNT AUTOMATED 226 10*3/uL (130-400); RED BLOOD COUNT 3.93 10*6/uL (4.50-5.90); RED CELL DISTRI WIDTH 12.9 % (0-14.5); WHITE BLOOD COUNT 6.8 10*3/uL (4.8-10.8)
[2021-07-06 06:38] LABS: BUN 13 mg/dl (7-24); CHLORIDE 106 mmol/L (98-107); CREATININE 1.35 mg/dL (0.70-1.30); POTASSIUM 4.4 mmol/L (3.5-5.1); SODIUM 139 mmol/L (136-145)
[2021-07-06 08:00] VITALS: BP 122/74
[2021-07-06 12:00] VITALS: BP 118/52
[2021-07-06 16:00] VITALS: BP 98/72
[2021-07-06 20:00] VITALS: BP 128/72
[2021-07-07] VITALS: BP 120/59
[2021-07-07 06:26] LABS: BASO % 0.5 % (0.0-1.0); EOS # 0.5 10*3/uL (0.0-0.4); HEMATOCRIT 36.6 % (42.0-52.0); LYMPH # 1.3 10*3/uL (1.3-4.4); LYMPH % 16.8 % (27.0-41.0); MEAN CELL VOLUME 92.2 fl (80.0-94.0); MEAN CORPUSCULAR HGB 29.7 pg (27.0-31.0); MEAN CORPUSCULAR HGB CONC 32.2 g/dl (33.0-37.0); MEAN PLATELET VOLUME 9.6 fl (9.6-12.3); MONO # 0.9 10*3/uL (0.1-1.0); NEUT # 5.1 10*3/uL (2.3-7.9); NEUT % 64.6 % (47.0-73.0); PLATELET COUNT AUTOMATED 240 10*3/uL (130-400); RED BLOOD COUNT 3.97 10*6/uL (4.50-5.90); RED CELL DISTRI WIDTH 13.1 % (0-14.5); WHITE BLOOD COUNT 7.9 10*3/uL (4.8-10.8)
[2021-07-07 06:38] LABS: CREATININE 1.37 mg/dL (0.70-1.30); POTASSIUM 4.5 mmol/L (3.5-5.1)
[2021-07-07 08:00] VITALS: BP 106/70
[2021-07-07 12:00] VITALS: BP 114/70
[2021-07-07 16:00] VITALS: BP 100/62
[2021-07-07 20:00] VITALS: BP 139/75
[2021-07-08] VITALS: BP 109/55
[2021-07-08 06:13] LABS: CREATININE 1.41 mg/dL (0.70-1.30); POTASSIUM 4.1 mmol/L (3.5-5.1)
[2021-07-08 06:22] LABS: BASO # 0.1 10*3/uL (0.0-0.1); EOS # 0.5 10*3/uL (0.0-0.4); EOS % 7.3 % (1.0-4.0); HEMATOCRIT 36.9 % (42.0-52.0); LYMPH # 1.3 10*3/uL (1.3-4.4); LYMPH % 18.1 % (27.0-41.0); MEAN CELL VOLUME 91.1 fl (80.0-94.0); MEAN CORPUSCULAR HGB 29.1 pg (27.0-31.0); MEAN PLATELET VOLUME 9.6 fl (9.6-12.3); MONO # 0.9 10*3/uL (0.1-1.0); MONO % 12.9 % (3.0-9.0); NEUT # 4.1 10*3/uL (2.3-7.9); NEUT % 59.4 % (47.0-73.0); PLATELET COUNT AUTOMATED 271 10*3/uL (130-400); RED BLOOD COUNT 4.05 10*6/uL (4.50-5.90)
[2021-07-08 08:00] VITALS: BP 123/63
[2021-07-08 12:00] VITALS: BP 146/62
[2021-07-08] MEDS ORDERED: ELIQUIS5 M1 PO ×2 (12:49)
[2021-07-08] MEDS ORDERED: ZOSYN 3.373.375 GM/1 IV (12:49)
[2021-07-08 16:00] VITALS: BP 125/65
== END 2021-07-08 16:46 | DRG 602 ==
LOC: ED 14:30 → 5E 15:33 → 4E 15:33 → EDHOLD 15:33 → 4E 17:02 → 5E 07-03 23:03
PROVIDERS: Family Medicine; Internal Medicine; Physician Assistant; Student in an Organized Health Care Education/Training Program; ADMIT Internal Medicine; ATTEND Internal Medicine
PROC: 02H633Z Insertion of Infusion Device into Right Atrium, Percutaneous Approach (ICD-10-PCS; principal; 2021-07-08)
DX: L03.116 Cellulitis of left lower limb (principal); N17.0 Acute kidney failure with tubular necrosis; E43 Unspecified severe protein-calorie malnutrition; M86.172 Other acute osteomyelitis, left ankle and foot; I82.413 Acute embolism and thrombosis of femoral vein, bilateral; I82.433 Acute embolism and thrombosis of popliteal vein, bilateral; I82.442 Acute embolism and thrombosis of left tibial vein; E11.69 Type 2 diabetes mellitus with other specified complication; E11.621 Type 2 diabetes mellitus with foot ulcer; E11.40 Type 2 diabetes mellitus with diabetic neuropathy, unspecified; N40.0 Benign prostatic hyperplasia without lower urinary tract symptoms; Z20.822 Contact with and (suspected) exposure to COVID-19; L97.522 Non-pressure chronic ulcer of other part of left foot with fat layer exposed; N18.31 Chronic kidney disease, stage 3a; L85.3 Xerosis cutis; E11.41 Type 2 diabetes mellitus with diabetic mononeuropathy; E11.65 Type 2 diabetes mellitus with hyperglycemia; D64.9 Anemia, unspecified; R00.1 Bradycardia, unspecified; B35.1 Tinea unguium; Z88.8 Allergy status to other drugs, medicaments and biological substances; Z90.49 Acquired absence of other specified parts of digestive tract; Z98.42 Cataract extraction status, left eye; Z79.4 Long term (current) use of insulin; Z98.41 Cataract extraction status, right eye; Z87.891 Personal history of nicotine dependence; Z68.22 Body mass index [BMI] 22.0-22.9, adult

== ENCOUNTER → 2021-07-16 | Outpatient (CLI) | payer OTHER ==
[~2021-07-16] MED LIST changes: +ELIQUIS5 M1 PO; +ZOSYN 3.373.375 GM/1 IV
== END ==
LOC: WOUNDCARE 01:48
PROVIDERS: ATTEND Nurse Practitioner
DX: E11.621 Type 2 diabetes mellitus with foot ulcer (principal); L97.522 Non-pressure chronic ulcer of other part of left foot with fat layer exposed; L84 Corns and callosities; L03.116 Cellulitis of left lower limb; E11.51 Type 2 diabetes mellitus with diabetic peripheral angiopathy without gangrene; E11.40 Type 2 diabetes mellitus with diabetic neuropathy, unspecified; Z87.891 Personal history of nicotine dependence

== ENCOUNTER → 2021-07-23 | Outpatient (CLI) | payer OTHER | LOC: WOUNDCARE 00:41 | PROVIDERS: ATTEND Surgery | DX: E11.621 Type 2 diabetes mellitus with foot ulcer (principal); L97.522 Non-pressure chronic ulcer of other part of left foot with fat layer exposed; L84 Corns and callosities; L03.116 Cellulitis of left lower limb; E11.51 Type 2 diabetes mellitus with diabetic peripheral angiopathy without gangrene; E11.40 Type 2 diabetes mellitus with diabetic neuropathy, unspecified; Z87.891 Personal history of nicotine dependence ==

== ENCOUNTER → 2021-07-29 | Outpatient (CLI) | payer OTHER | LOC: WOUNDCARE 00:27 | PROVIDERS: ATTEND Surgery | DX: E11.621 Type 2 diabetes mellitus with foot ulcer (principal); L97.522 Non-pressure chronic ulcer of other part of left foot with fat layer exposed; L84 Corns and callosities; L03.116 Cellulitis of left lower limb; E11.51 Type 2 diabetes mellitus with diabetic peripheral angiopathy without gangrene; E11.40 Type 2 diabetes mellitus with diabetic neuropathy, unspecified; Z87.891 Personal history of nicotine dependence ==

== ENCOUNTER → 2021-08-06 | Outpatient (CLI) | payer OTHER | LOC: WOUNDCARE 00:40 | PROVIDERS: ATTEND Surgery | DX: E11.621 Type 2 diabetes mellitus with foot ulcer (principal); L97.522 Non-pressure chronic ulcer of other part of left foot with fat layer exposed; L03.116 Cellulitis of left lower limb; E11.51 Type 2 diabetes mellitus with diabetic peripheral angiopathy without gangrene; L84 Corns and callosities; E11.40 Type 2 diabetes mellitus with diabetic neuropathy, unspecified; Z87.891 Personal history of nicotine dependence ==

== ENCOUNTER → 2021-08-13 | Outpatient (CLI) | payer OTHER | LOC: WOUNDCARE 01:06 | PROVIDERS: ATTEND Surgery | DX: E11.621 Type 2 diabetes mellitus with foot ulcer (principal); L97.525 Non-pressure chronic ulcer of other part of left foot with muscle involvement without evidence of necrosis; L03.116 Cellulitis of left lower limb; E11.51 Type 2 diabetes mellitus with diabetic peripheral angiopathy without gangrene; L84 Corns and callosities; E11.40 Type 2 diabetes mellitus with diabetic neuropathy, unspecified; Z87.891 Personal history of nicotine dependence ==

== ENCOUNTER → 2021-08-20 | Outpatient (CLI) | payer OTHER | LOC: WOUNDCARE 01:29 | PROVIDERS: ATTEND Surgery | DX: E11.621 Type 2 diabetes mellitus with foot ulcer (principal); L97.522 Non-pressure chronic ulcer of other part of left foot with fat layer exposed; L03.116 Cellulitis of left lower limb; E11.51 Type 2 diabetes mellitus with diabetic peripheral angiopathy without gangrene; L84 Corns and callosities; E11.40 Type 2 diabetes mellitus with diabetic neuropathy, unspecified; Z87.891 Personal history of nicotine dependence ==